=== PATIENT | female | born 1950 | race Caucasian/White ===

== ENCOUNTER 2022-06-21 21:13 | Inpatient (IN) | payer OTHER, SELFPAY ==
[2022-06-21] VITALS (8 sets, daily range): BP systolic 133–156; BP diastolic 57–84; PULSE 97–120; RESP 13–26; TEMP 36.8; O2SAT 91–96; BMI 38.5
[2022-06-21 21:32] LABS: Appearance Urine UA CLEAR; Bilirubin Urine UA NEGATIVE (NEGATIVE); Color Urine UA YELLOW; Glucose Urine UA NEGATIVE (Negative); Ketones Urine UA NEGATIVE (NEGATIVE); Leukocyte Esterase Urine UA TRACE (NEGATIVE); Nitrite Urine UA NEGATIVE (Negative); Occult Blood Urine UA NEGATIVE (Negative); Protein Urine UA NEGATIVE (Negative); Urobilinogen Urine UA 0.2 E.U./dL (0.2)
[2022-06-21 21:39] LABS: Amorphous Sediment Urine 1+; Bacteria Urine Occasional (0-1); Calcium Oxalate Crystals Urine Moderate; Hyaline Casts Urine 5-10/LPF; RBC Urine 0-1/HPF (0-5/HPF); Squamous Epithelial Cell Urine 1-5 /HPF (0-5/HPF)
[2022-06-21 21:40] LABS: Culture Indicated Urine Specimen Cultured; WBC Urine 1-5/HPF (0-5/HPF)
[2022-06-21] MEDS: ONDANSETRON 4 MG/2 ML INJ IV (21:50)
[2022-06-21 22:08] LABS: Add Manual Diff / Slide Review NO; Basophils Absolute Auto 100 /uL (0-100); Basophils Percent Auto 0.5 % (0-2); Eosinophils Absolute Auto 800 /uL (0-450); Eosinophils Percent Auto 6.6 % (2-4); Hematocrit 39.6 % (36-46); Lymphocytes Absolute Auto 2100 /uL (1100-4500); Lymphocytes Percent Auto 16.6 % (25-40); Mean Corpuscular HGB Conc 32.8 % (30-36); Mean Corpuscular Hemoglobin 22.8 PG (26-34); Mean Corpuscular Volume 69.5 fL (80-100); Monocytes Absolute Auto 1400 /uL (0-900); Monocytes Percent Auto 10.9 % (3-14); Neutrophils Absolute Auto 8300 /uL (1500-7000); Neutrophils Percent Auto 65.4 % (50-75); Platelet Count 319 X10^3/uL (150-400); Red Cell Distribution Width 18.6 % (11.6-14.8); White Blood Cell Count 12.7 X10^3/uL (4.5-11.0)
[2022-06-21 22:16] LABS: Alanine Aminotransferase 67 IU/L (<35); Albumin 3.8 g/dL (3.5-5.0); Albumin Globulin Ratio 1.2 (1.0-2.8); Alkaline Phosphatase 380 U/L (38-126); Aspartate Aminotransferase 48 IU/L (14-36); BUN Creatinine Ratio 16.8 (6-22); Bilirubin Total 0.8 mg/dL (0.2-1.3); Blood Urea Nitrogen 20 mg/dL (7-17); Calcium 12.1 mg/dL (8.4-10.2); Carbon Dioxide 26 mmol/L (22-32); Chloride 98 mmol/L (98-107); Estimated Glomerular Filt Rate 49 mL/min (>60); Globulin 3.3 g/dL (1.7-4.1); Glucose 130 mg/dL (80-110); HEMOLYSIS < 15 (0-50); Lipase 36 U/L (23-300); Sodium 132 mmol/L (137-145); Total Protein 7.1 g/dL (6.3-8.2)
[2022-06-21 22:27] LABS: Anisocytosis 1+; Microcytosis 2+; Target Cells 1+
--- NOTE | 2022-06-21 22:30 | ED.ABDPAIN ---
HPI - Abdominal Pain General Chief Complaint: Abdominal Pain Stated Complaint: nt feeling- increase pain front/back ab pain Time Seen by Provider: 06/21/22 21:56 Source: patient Mode of arrival: Ambulatory Limitations: no limitations History of Present Illness HPI narrative: This is a 71-year-old female with history of crest syndrome, Gallagher's esophagitis, esophageal dysmotility, hypertension, Raynaud's and recurrent pancreatitis. Patient presents with midepigastric pain radiating towards her back. Patient states she is had nausea that started in the last day. She states for the past 10 she has not felt well but not sick. She states pain has been a little bit there but has gotten worse today she states it feels similar to when she gets pancreatitis in the early stages. She is had nausea but no vomiting. She has had a little bit of lightheadedness when she goes from sitting to standing but no syncope. She has chronic shortness of breath which she states is not new or worsened. She had little bit of radiation up into the sternal area but worse when she would push on her abdomen and chest. She denies any swelling in her extremities. She states she is chronically constipated and had a bowel movement today. No bright red blood or melena. No dysuria, urgency or frequency. She sometimes gets a little bit of right flank pain none today but has had some intermittently. She is on medication including hydroxychloroquine for her hands sounds like she might have rheumatoid arthritis versus her crest syndrome, valsartan, Lasix. Patient states she did not take her medication today because she was worried about the nausea and having trouble swallowing her pills. She is had prior EGDs, appendectomy, bilateral knee replacement, breast biopsy, tonsil and adenoids, back surgery in 2020 for L3 through L5 and has a hilaria in her back. No prior cardiac stents or interventions. She states she is allergic to codeine and tetracycline. No tobacco, alcohol or illicit. Shana perez is her provider through Dr. Khalil's office. She sees a residential program manager and gastroenterology Ryan. She is been set up to follow up with pulmonology and she has seen Cardiology with Dr. Chinchilla in the past. She was having issues with her blood pressure being labile and they stopped her nifedipine and change her to valsartan about a year ago and that resolved. Related Data Home Medications Medication Instructions Recorded Confirmed albuterol sulfate 90 mcg/actuation 1 puff inhalation PRN PRN Allergy 06/22/22 06/22/22 aerosol inhaler Symptoms azelastine 137 mcg (0.1 %) nasal 1 spray intranasal PRN PRN 06/22/22 06/22/22 spray aerosol Allergic Symptoms furosemide 20 mg tablet (Lasix) 20 mg PO DAILY 06/22/22 06/22/22 hydroxychloroquine 200 mg tablet 200 mg PO DAILY 06/22/22 06/22/22 omeprazole 40 mg capsule,delayed 40 mg PO BID 06/22/22 06/22/22 release valsartan 40 mg tablet 40 mg PO DAILY 06/22/22 06/22/22 Allergies Allergy/AdvReac Type Severity Reaction Status Date / Time codeine Allergy Verified 06/21/22 21:30 tetracycline Allergy Verified 06/21/22 21:30 Review of Systems Review of Systems ROS Unobtainable: All systems reviewed & are unremarkable except as noted in HPI and below Patient History Social History household members: family Smoking Status: Never smoker alcohol intake: former Smoking Status: Never smoker Substance Use Type: does not use Exam Narrative Exam Narrative: GEN: Elderly female, alert and oriented x 3, patient appears to be in mild distress. HEENT: Atraumatic, pupils are equal round reactive to light, extraocular movements are intact, nares are clear, there is no conjunctival pallor. Throat is clear without any exudates, erythema, tonsillar enlargement or uvular deviation HEART: Slightly tachycardic 100-90 range, Regular rate and rhythm without murmur, clicks, rubs. Pulses are equal in upper and lower extremities. No JVD. Patient has tenderness over the epigastric area and sternal region. LUNGS:Lungs clear to auscultation, no wheezes, rales, crackles, chest moves symmetrically, no tachypnea accessory muscle use ABD:bowel sounds normal, soft, generalized tenderness, no guarding, rebound, rigidity, no masses noted, no hepatosplenomegaly :No CVA tenderness MSCL: Non-tender, no muscle atrophy, muscles strength 5/5 upper and lower extremities, full range of motion, normal gait NEURO:CN 2-12 intact, sensation normal SKIN: No rash, erythema or other skin changes Initial Vital Signs Initial Vital Signs: Vital Signs Temperature 98.3 F 06/21/22 21:20 Pulse Rate 120 H 06/21/22 21:20 Respiratory Rate 18 06/21/22 21:20 Blood Pressure 144/84 H 06/21/22 21:20 Pulse Oximetry 96 06/21/22 21:20 Oxygen Delivery Method Room Air 06/21/22 21:20 Course Orders Ordered: ED Orders 06/21/22 21:20 Urinalysis and Microscopic Stat Urine Culture Stat 06/21/22 21:34 EKG-12 Lead Stat 06/21/22 21:46 BNP [NT-proBNP (BNP-Adult 18+)] Stat Complete Blood Count AUTO DIFF Stat Comprehensive Metabolic Panel Stat Lactate (Lactic Acid) Stat Lipase Stat Troponin & CK Cardiac Panel Stat 06/21/22 22:31 CT abdomen pelvis w con Stat Chest [XR chest 1V] Stat 06/21/22 23:20 Blood Culture Stat 06/21/22 23:25 US abdomen limited Stat 06/22/22 00:18 COVID19 -Nasal RAPID Stat Acetaminophen (Acetaminophen 325 Mg Tablet) 650 mg PO Q6H PRN PRN Reason: Fever/Mild Pain (1-3) Heparin Sodium (Porcine) (Heparin 5,000 Unit/Ml Vial) 5,000 unit SUBCUT BID RITESH Lactated Ringer's (Lactated Ringers) 1,000 mls @ 200 mls/hr IV CONT RITESH Last Admin: 06/22/22 03:19 Dose: 200 mls/hr Documented By: MELVA Piperacillin Sod/Tazobactam (Sod 3.375 gm/ Sodium Chloride) 100 mls @ 25 mls/hr IV Q8H [facility] Naloxone HCl (Naloxone 0.4 Mg/Ml Vial) 0.2 mg IV Q2MIN PRN PRN Reason: Opiate Reversal Ondansetron HCl (Ondansetron 4 Mg/2 Ml Inj) 4 mg IV Q8HR PRN PRN Reason: Nausea And Vomiting Pantoprazole Sodium (Pantoprazole 40 Mg Vial) 40 mg IV DAILY [facility] Discontinued Medications Acetaminophen (Acetaminophen 325 Mg Tablet) 975 mg PO NOW ONE Stop: 06/21/22 22:32 Last Admin: 06/21/22 23:16 Dose: 975 mg Documented By: CARLY Al Hydrox/Mg Hydrox/Simethicone 20 ml/ Lidocaine HCl 15 ml 0 ml PO NOW ONE Stop: 06/22/22 02:55 Last Admin: 06/22/22 03:19 Dose: 35 ml Documented By: MELVA Sodium Chloride (Normal Saline 0.9%) 1,000 mls @ 1,000 mls/hr IV BOLUS ONE Stop: 06/21/22 23:30 Last Infusion: 06/22/22 00:50 Dose: 0 mls/hr Documented By: Admin: 06/21/22 23:16 Dose: 1,000 mls/hr Documented By: CARLY Piperacillin Sod/Tazobactam (Sod 4.5 gm/ Sodium Chloride) 100 mls @ 200 mls/hr IV NOW ONE Stop: 06/21/22 22:46 Last Infusion: 06/22/22 00:20 Dose: 0 mls/hr Documented By: Admin: 06/21/22 23:16 Dose: 200 mls/hr Documented By: CARLY Influenza Virus Vaccine (Influenza Hd Vaccine 0.7 Ml Syringe) 0.7 ml IM .ONCE ONE Stop: 06/22/22 09:01 Ondansetron HCl (Ondansetron 4 Mg Odt) 4 mg PO NOW PRN PRN Reason: Nausea And Vomiting Ondansetron HCl (Ondansetron 4 Mg/2 Ml Inj) 4 mg IV NOW PRN PRN Reason: Nausea And Vomiting Last Admin: 06/21/22 21:50 Dose: 4 mg Documented By: ANGEL LUIS Vital Signs Vital signs: Vital Signs - 8 hr 06/21/22 21:20 06/21/22 21:27 06/21/22 21:30 Temperature 98.3 F Pulse Rate 120 H Respiratory Rate 18 Blood Pressure 144/84 H 144/84 H 156/57 H Pulse Oximetry 96 Oxygen Delivery Method Room Air 06/21/22 21:30 06/21/22 22:00 06/21/22 22:00 Temperature Pulse Rate 116 H 101 H Respiratory Rate 24 13 Blood Pressure 133/67 Pulse Oximetry 95 91 Oxygen Delivery Method 06/21/22 22:30 06/21/22 22:30 06/21/22 23:03 Temperature Pulse Rate 101 H 115 H Respiratory Rate 23 20 Blood Pressure 145/82 H Pulse Oximetry 93 91 Oxygen Delivery Method Room Air 06/21/22 23:04 06/21/22 23:04 06/21/22 23:30 Temperature Pulse Rate 107 H Respiratory Rate 23 Blood Pressure 152/69 H 141/64 H Pulse Oximetry 93 Oxygen Delivery Method Room Air 06/21/22 23:30 06/22/22 00:00 06/22/22 00:00 Temperature Pulse Rate 97 H 93 H Respiratory Rate 26 H 26 H Blood Pressure 154/69 H Pulse Oximetry 93 92 Oxygen Delivery Method 06/22/22 00:30 06/22/22 00:30 06/22/22 01:03 Temperature Pulse Rate 91 H 93 H Respiratory Rate 23 16 Blood Pressure 117/59 L Pulse Oximetry 90 L 93 Oxygen Delivery Method MDM - Abdominal Pain Lab Data 06/21/22 21:46 06/21/22 21:46 Labs: Lab Results 06/21/22 06/21/22 06/21/22 Range/Units 21:20 21:46 21:46 WBC 12.7 H (4.5-11.0) X10^3/uL RBC 5.70 H (4.0-5.2) X10^6/uL Hgb 13.0 (12.0-16.0) g/dL Hct 39.6 (36-46) % MCV 69.5 L (80-100) fL MCH 22.8 L (26-34) PG MCHC 32.8 (30-36) % RDW 18.6 H (11.6-14.8) % Plt Count 319 (150-400) X10^3/uL Neut % (Auto) 65.4 (50-75) % Lymph % (Auto) 16.6 L (25-40) % [place] % (Auto) 10.9 (3-14) % Eos % (Auto) 6.6 H (2-4) % Baso % (Auto) 0.5 (0-2) % Neut # (Auto) 8300 H (3571-1035) /uL Lymph # (Auto) 2100 (4810-4817) /uL [place] # (Auto) 1400 H (0-900) /uL Eos # (Auto) 800 H (0-450) /uL Baso # (Auto) 100 (0-100) /uL RBC Morphology See below Anisocytosis 1+ H Microcytosis 2+ H Target Cells 1+ H Sodium 132 L (137-145) mmol/L Potassium 4.0 (3.4-5.1) mmol/L Chloride 98 (98-107) mmol/L Carbon Dioxide 26 (22-32) mmol/L BUN 20 H (7-17) mg/dL Creatinine 1.19 H (0.52-1.04) mg/dL Estimated GFR 49 L (>60) mL/min BUN/Creatinine Ratio 16.8 (6-22) Glucose 130 H (80-110) mg/dL Lactate (0.7-2.1) mmol/L Calcium 12.1 H (8.4-10.2) mg/dL Total Bilirubin 0.8 (0.2-1.3) mg/dL AST 48 H (14-36) IU/L ALT 67 H (<35) IU/L Alkaline Phosphatase 380 H (38-126) U/L Total Creatine Kinase (30-135) U/L CK-MB (CK-2) CK-MB (CK-2) Rel Index Troponin I (0.01-0.034) ng/mL NT-Pro-B Natriuret Pep (<125) pg/mL Total Protein 7.1 (6.3-8.2) g/dL Albumin 3.8 (3.5-5.0) g/dL Globulin 3.3 (1.7-4.1) g/dL Albumin/Globulin Ratio 1.2 (1.0-2.8) Lipase 36 (23-300) U/L Urine Color Yellow Urine Appearance Clear Urine pH 6.0 (4.5-8.0) Ur Specific [place] 1.020 (1.000-1.035) Urine Protein Negative (Negative) Urine Glucose (UA) Negative (Negative) g/dL Urine Ketones Negative (NEGATIVE) Urine Occult Blood Negative (Negative) Urine Nitrate Negative (Negative) Urine Bilirubin Negative (NEGATIVE) Urine Urobilinogen 0.2 (0.2) E.U./dL Ur Leukocyte Esterase Trace H (NEGATIVE) Urine RBC 0-1/hpf (0-5/HPF) Urine WBC 1-5/hpf (0-5/HPF) Ur Squamous Epith Cells 1-5 /hpf (0-5/HPF) Calcium Oxalate Crystal Moderate H Amorphous Sediment 1+ Urine Bacteria Occasional (0-1) (None) Hyaline Casts 5-10/lpf (None) Ur Culture Indicated? Specimen cultured SARS-CoV-2 (PCR) (Negative) 06/21/22 06/21/22 06/22/22 Range/Units 21:46 21:46 00:18 WBC (4.5-11.0) X10^3/uL RBC (4.0-5.2) X10^6/uL Hgb (12.0-16.0) g/dL Hct (36-46) % MCV (80-100) fL MCH (26-34) PG MCHC (30-36) % RDW (11.6-14.8) % Plt Count (150-400) X10^3/uL Neut % (Auto) (50-75) % Lymph % (Auto) (25-40) % [place] % (Auto) (3-14) % Eos % (Auto) (2-4) % Baso % (Auto) (0-2) % Neut # (Auto) (2590-4115) /uL Lymph # (Auto) (7355-2100) /uL [place] # (Auto) (0-900) /uL Eos # (Auto) (0-450) /uL Baso # (Auto) (0-100) /uL RBC Morphology Anisocytosis Microcytosis Target Cells Sodium (137-145) mmol/L Potassium (3.4-5.1) mmol/L Chloride (98-107) mmol/L Carbon Dioxide (22-32) mmol/L BUN (7-17) mg/dL Creatinine (0.52-1.04) mg/dL Estimated GFR (>60) mL/min BUN/Creatinine Ratio (6-22) Glucose (80-110) mg/dL Lactate 1.3 (0.7-2.1) mmol/L Calcium (8.4-10.2) mg/dL Total Bilirubin (0.2-1.3) mg/dL AST (14-36) IU/L ALT (<35) IU/L Alkaline Phosphatase (38-126) U/L Total Creatine Kinase 47 (30-135) U/L CK-MB (CK-2) TNP CK-MB (CK-2) Rel Index TNP Troponin I < 0.012 (0.01-0.034) ng/mL NT-Pro-B Natriuret Pep 109 (<125) pg/mL Total Protein (6.3-8.2) g/dL Albumin (3.5-5.0) g/dL Globulin (1.7-4.1) g/dL Albumin/Globulin Ratio (1.0-2.8) Lipase (23-300) U/L Urine Color Urine Appearance Urine pH (4.5-8.0) Ur Specific [place] (1.000-1.035) Urine Protein (Negative) Urine Glucose (UA) (Negative) g/dL Urine Ketones (NEGATIVE) Urine Occult Blood (Negative) Urine Nitrate (Negative) Urine Bilirubin (NEGATIVE) Urine Urobilinogen (0.2) E.U./dL Ur Leukocyte Esterase (NEGATIVE) Urine RBC (0-5/HPF) Urine WBC (0-5/HPF) Ur Squamous Epith Cells (0-5/HPF) Calcium Oxalate Crystal Amorphous Sediment Urine Bacteria (None) Hyaline Casts (None) Ur Culture Indicated? SARS-CoV-2 (PCR) Negative (Negative) Imaging Data Chest x-ray: Radiologist's Impression: Report is in PACs but did not cross over into the EMR system. Diffuse mild interstitial prominence, chronicity uncertain. No subdiaphragmatic free air found. No pleural effusion or pneumothorax. Mediastinal contours appear normal. Heart size is normal. No suspicious bony lesions. Overlying soft tissue appears unremarkable. CT scan - abdomen/pelvis: Radiologist's Impression: Close Abdomen Ultrasound (Signed) Bryan Vasquez - 06/21/22 Abdomen/Pelvis CT (Signed) Bryan Vasquez - 06/21/22 [employer] [address] CT Scan Report Signed Patient: Verito Hillman MR#: [id number] : 1950 Acct:[id number] Age/Sex: 71 / F Date of Service: 06/21/22 Loc: ED Accession Number: [id number] ?? Procedure: CT abdomen pelvis w con Ordering Provider: Iris Domínguez D.O. PROCEDURE:? CT ABDOMEN PELVIS W CON ? INDICATIONS:? abd pain ? TECHNIQUE:? After the administration of intravenous contrast, axial sections acquired from the lung bases to the pubic symphysis.? Coronal and sagittal reformats were performed.? For radiation dose reduction, the following was used:? automated exposure control, adjustment of mA and/or kV according to patient size.? ? COMPARISON:? None. ? FINDINGS:? Image quality:? Excellent.? ? Lung bases:? Unremarkable. Heart:? No significant findings.? Note is made of a moderate-sized hiatal hernia behind the heart. ? ABDOMEN: Liver:? Unremarkable.? ? Gallbladder:? Unremarkable.? ? Biliary ducts:? Unremarkable.? ? Pancreas:? Unremarkable.? ? Spleen:? Unremarkable.? ? Adrenal Glands:? Unremarkable.? ? Kidneys and Ureters:? Unremarkable.? ? ? Stomach and Bowel:? Stomach, small bowel loops, and colon are unremarkable.? Colonic obstipation, right greater than left. Peritoneum:? No abnormal intraperitoneal fluid.? No free air.? ? Ventral Wall: ? No hernias.? Abdominal Nodes:? No retroperitoneal or mesenteric adenopathy by size criteria.? Vessels:? Aorta and inferior vena cava are normal in size.? ? PELVIS: Pelvic Organs:? Unremarkable.? ? Bladder:? Unremarkable.? ? Pelvic Nodes: No enlarged lymph nodes.? Miscellaneous: No hernias are seen. ? Colonic obstipation, right greater than left.? Sigmoid diverticulosis with what appears to be slight acute diverticulitis at the left lower quadrant as indicated by slight edema within the pericolonic fatty soft tissues in that area.? This is best seen centered on diverticula seen on series 2, image 49.? ? Bones:? Unremarkable.? ? Prior lumbosacral spine fusion procedure. ? ? IMPRESSION:? Colonic diverticulosis, right greater than left.? No colitis found.? There is, however, relatively prominent sigmoid diverticulosis and also focal mild acute diverticulitis involving the lower aspect of the descending colon in the left iliac fossa area.? No pericolonic abscess is associated. ? ? Dictated by: Bryan Vasquez M.D. on 06/21/2022 at 23:08 ? ? Approved by: Bryan Vasquez M.D. on 06/21/2022 at 23:12 US - abdomen: Radiologist's Impression: [address] [address] Ultrasound Report Signed Patient: Verito Hillman MR#: [id number] : 1950 Acct:[id number] Age/Sex: 71 / F Date of Service: 06/21/22 Loc: ED Accession Number: [id number] ?? Procedure: US abdomen limited Ordering Provider: Iris Domínguez D.O. PROCEDURE: US ABDOMEN LIMITED ? INDICATIONS:? abd pain, elevated lfts ? TECHNIQUE:? Real-time focused scanning was performed of the abdomen, with image documentation.? ? COMPARISON:? None. ? FINDINGS:? The liver appears hyperechoic consistent with fatty infiltration but is not enlarged, measuring 15.8 cm craniocaudad.? The gallbladder contains a small amount of sludge and a single 8 mm gallstone, but the gallbladder wall is within normal limits in caliber measuring up to 3 mm.? The bile ducts visualized are normal also, and the pancreas seen appears normal. ? IMPRESSION:? Single gallstone within the gallbladder lumen, with additional small amount of sludge. ? No sign of acute cholecystitis or biliary obstruction.? Fatty infiltration throughout the liver which is not enlarged.? ? Dictated by: Bryan Vasquez M.D. on 06/22/2022 at 0:12 ? ? Approved by: Bryan Vasquez M.D. on 06/22/2022 at 0:15?? ECG Data Attestation: I personally reviewed and interpreted this ECG as follows: Prior ECG tracings: not available for review Interpretation: Sinus tachycardia rate of 111 MT 124 QRS of 86 and QTC of 437. Left anterior fascicular block, left ventricular hypertrophy. No acute ST elevation appreciated. No depression noted. MDM Narrative Medical decision making narrative: This is a 71-year-old female who presents with complaint of generally feeling unwell for about 10 days some some epigastric abdominal pain for the past day she is had nausea but no vomiting. Patient has had history of pancreatitis and states it feels similar to the early stages. She is not sure exactly why she is pancreatitis she states she does not drink alcohol. She is had about 5 episodes every 2 years or so. She does have history of crest syndrome, Raynaud's and is on hydroxychloroquine. Her examination today shows generalized tenderness. Patient workup shows leukocytosis, MCV is low at 69, platelets are appropriate at 3:19 a.m. with a hemoglobin of 12. Patient has elevated eosinophils and neutrophils. CMP shows a sodium 132 normal potassium, CO2 is 26 BUN 20 with a creatinine of 1.19 no priors for comparison see if this is her baseline. Glucose is 130 lactate normal but calcium is elevated at 12.1. Total bilirubin AST/ALT alk-phos show very mild change in AST ALT at 48 and 67. Alk-phos is 380. Patient's troponins negative so as BNP. Lipase today is negative. Urine shows leukocyte esterase and some calcium oxalate crystals. She is COVID negative. Chest x-ray showed a little interstitial change. CT abdomen pelvis has some colonic obstipation, sigmoid diverticulosis with a focal mild diverticulitis in the descending colon on the left no abscess. Patient's discomfort was more epigastric and upper abdomen she had some generalized tenderness on exam I am not entirely convinced diverticulitis is the complete source of her pain. She was given a L of fluids for her hyper calcemia. Some Tylenol for headache and Zofran. To give her a dose of IV antibiotic to cover for infection. Patient heart rate improved quite a bit into the 90s after a L fluids she is not been hypotensive. She is not been febrile. Discussed with Dr. Fournier at the ultrasound does show gallstone but no thickening or Clemente's sign. No surgical interventions from their standpoint. I spoke with Dr. Og, hospitalist service who accepts for observation for hypercalcemia, possible acute kidney injury although this may be patient's baseline, diverticulitis. Updated patient is on her findings. She notes her GFR was 54 at last check with Dr. Miranda cardiology when changes to valsartan. Reviewed all patients findings. She states she is feeling improved at this time. Discharge Plan Departure Patient Disposition: Admitted as Observation Clinical Impression: Hypercalcemia, BOBO (acute kidney injury), SIRS (systemic inflammatory response syndrome), Gallstone, Diverticulitis Admit Date/Time: 06/22/22 01:12 Admit Provider: Alex Og
--- NOTE | 2022-06-21 22:31 | DI.CT.S_ITS ---
PROCEDURE: CT ABDOMEN PELVIS W CON INDICATIONS: abd pain TECHNIQUE: After the administration of intravenous contrast, axial sections acquired from the lung bases to the pubic symphysis. Coronal and sagittal reformats were performed. For radiation dose reduction, the following was used: automated exposure control, adjustment of mA and/or kV according to patient size. COMPARISON: None. FINDINGS: Image quality: Excellent. Lung bases: Unremarkable. Heart: No significant findings. Note is made of a moderate-sized hiatal hernia behind the heart. ABDOMEN: Liver: Unremarkable. Gallbladder: Unremarkable. Biliary ducts: Unremarkable. Pancreas: Unremarkable. Spleen: Unremarkable. Adrenal Glands: Unremarkable. Kidneys and Ureters: Unremarkable. Stomach and Bowel: Stomach, small bowel loops, and colon are unremarkable. Colonic obstipation, right greater than left. Peritoneum: No abnormal intraperitoneal fluid. No free air. Ventral Wall: No hernias. Abdominal Nodes: No retroperitoneal or mesenteric adenopathy by size criteria. Vessels: Aorta and inferior vena cava are normal in size. PELVIS: Pelvic Organs: Unremarkable. Bladder: Unremarkable. Pelvic Nodes: No enlarged lymph nodes. Miscellaneous: No hernias are seen. Colonic obstipation, right greater than left. Sigmoid diverticulosis with what appears to be slight acute diverticulitis at the left lower quadrant as indicated by slight edema within the pericolonic fatty soft tissues in that area. This is best seen centered on diverticula seen on series 2, image 49. Bones: Unremarkable. Prior lumbosacral spine fusion procedure. IMPRESSION: Colonic diverticulosis, right greater than left. No colitis found. There is, however, relatively prominent sigmoid diverticulosis and also focal mild acute diverticulitis involving the lower aspect of the descending colon in the left iliac fossa area. No pericolonic abscess is associated. Dictated by: Bryan Vasquez M.D. on 06/21/2022 at 23:08 Approved by: Bryan Vasquez M.D. on 06/21/2022 at 23:12
--- NOTE | 2022-06-21 22:31 | DI.RAD.S_ITS ---
PROCEDURE: XR CHEST 1V INDICATIONS: abd pain TECHNIQUE: One view of the chest was acquired. COMPARISON: [facility], CT, CT ABDOMEN PELVIS W CON, 06/21/2022, 22:44. FINDINGS: Surgical changes and devices: None. Lungs and pleura: Lungs are free of focal pneumonia but there is a mild diffuse interstitial prominence. No pleural effusions or pneumothorax. Mediastinum: Mediastinal contours appear normal. Heart size is normal. Bones and chest wall: No suspicious bony lesions. Overlying soft tissues appear unremarkable. IMPRESSION: Diffuse mild interstitial prominence, chronicity uncertain. No subdiaphragmatic free air found. Dictated by: Bryan Vasquez M.D. on 06/21/2022 at 23:06 Approved by: Bryan Vasquez M.D. on 06/21/2022 at 23:07
[2022-06-21 22:46] LABS: Creatine Kinase 47 U/L (30-135)
[2022-06-21 22:57] LABS: Lactate (Lactic Acid) 1.3 mmol/L (0.7-2.1)
[2022-06-21 22:59] LABS: NT-proBNP (BNP-Adult 18+) 109 pg/mL (<125); Troponin I < 0.012 ng/mL (0.01-0.034)
[2022-06-21] MEDS: SODIUM CHLORIDE 0.9% 1,000 ML 1000 ML IV (23:16)
[2022-06-21] MEDS: ACETAMINOPHEN 325 MG TABLET 975 MG PO (23:16)
[2022-06-21] MEDS: PIPERACILLIN/TAZO 4.5 GM in SODIUM CHLORIDE 0.9% 100 ML IV (23:16)
--- NOTE | 2022-06-21 23:25 | DI.US.S_ITS ---
PROCEDURE: US ABDOMEN LIMITED INDICATIONS: abd pain, elevated lfts TECHNIQUE: Real-time focused scanning was performed of the abdomen, with image documentation. COMPARISON: None. FINDINGS: The liver appears hyperechoic consistent with fatty infiltration but is not enlarged, measuring 15.8 cm craniocaudad. The gallbladder contains a small amount of sludge and a single 8 mm gallstone, but the gallbladder wall is within normal limits in caliber measuring up to 3 mm. The bile ducts visualized are normal also, and the pancreas seen appears normal. IMPRESSION: Single gallstone within the gallbladder lumen, with additional small amount of sludge. No sign of acute cholecystitis or biliary obstruction. Fatty infiltration throughout the liver which is not enlarged. Dictated by: Bryan Vasquez M.D. on 06/22/2022 at 0:12 Approved by: Bryna Vasquez M.D. on 06/22/2022 at 0:15
[2022-06-22] VITALS (11 sets, daily range): BP systolic 113–154; BP diastolic 45–69; PULSE 65–93; RESP 13–26; TEMP 36.2–37.1; O2SAT 90–95; BMI 38.5
[2022-06-22 00:38] LABS: COVID19 -Nasal RAPID Negative (Negative)
--- NOTE | 2022-06-22 02:01 | PM.HP.1 ---
History of Present Illness History of Present Illness Date Patient Seen: 06/22/22 Time Patient Seen: 02:00 Chief complaint: nt feeling- increase pain front/back ab pain Narrative: Ms. 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 She states she has felt poorly for at least a week. She has had epigastric discomfort, it is fairly pinpoint right at the xiphoid process and radiates to the back. She notes worse when pain she takes a breath. She has nausea and poor appetite. She has had night sweats every night for a week. She has no fevers. She has lost no weight. She feels dehyrated, and she feels dizzy while standing. No diarrhea, or vomiting. She does not think this feels like her usual GERD symptoms. She had a endoscopy in January that showed Carlos's, she has never had any peptic ulcers. Colonoscopy was 4 years ago and had polyps. Her CREST has been worsening and she started hydroxychloroquine a few months ago. In the ED workup was done, vitals notable for afebrile, heart rate in the 120s, respiratory rate 18, blood pressure 140s/80s, sats 96% on room air. Labs reviewed by me and notable for WBC 12.7, hgb 13, plts 319. Na 132, creatinine 1.19. Calcium 12.1, AST/ALT 48/67. alk phos 380. Lactate 1.3. Troponin negative. CT abdomen reviewed by me and showed hiatal hernia, possible diverticulitis in the colon. Ultrasound of the abdomen showed cholelithiasis and no cholecystitis. She was given antibiotics and her heart rate improve and she was admitted for further treatment. [facility] Social History household members: family Smoking Status: Never smoker alcohol intake: former Meds Home Medications and Allergies Home Medications Medication Instructions Recorded Confirmed Type albuterol sulfate 90 mcg/actuation 1 puff inhalation PRN PRN Allergy 06/22/22 06/22/22 History aerosol inhaler Symptoms azelastine 137 mcg (0.1 %) nasal 1 spray intranasal PRN PRN 06/22/22 06/22/22 History spray aerosol Allergic Symptoms furosemide 20 mg tablet (Lasix) 20 mg PO DAILY 06/22/22 06/22/22 History hydroxychloroquine 200 mg tablet 200 mg PO DAILY 06/22/22 06/22/22 History omeprazole 40 mg capsule,delayed 40 mg PO BID 06/22/22 06/22/22 History release valsartan 40 mg tablet 40 mg PO DAILY 06/22/22 06/22/22 History Allergies Allergy/AdvReac Type Severity Reaction Status Date / Time codeine Allergy Verified 06/21/22 21:30 tetracycline Allergy Verified 06/21/22 21:30 Review of Systems Review of Systems Narrative: 14 systems reviewed and negative aside from what is noted in HPI Exam Vital Signs (past 8 hours): - 06/21/22 21:20 06/21/22 21:27 06/21/22 21:30 Temperature 98.3 F Pulse Rate 120 H Respiratory Rate 18 Blood Pressure 144/84 H 144/84 H 156/57 H Pulse Oximetry 96 Oxygen Delivery Method Room Air 06/21/22 21:30 06/21/22 22:00 06/21/22 22:00 Temperature Pulse Rate 116 H 101 H Respiratory Rate 24 13 Blood Pressure 133/67 Pulse Oximetry 95 91 Oxygen Delivery Method 06/21/22 22:30 06/21/22 22:30 06/21/22 23:03 Temperature Pulse Rate 101 H 115 H Respiratory Rate 23 20 Blood Pressure 145/82 H Pulse Oximetry 93 91 Oxygen Delivery Method Room Air 06/21/22 23:04 06/21/22 23:04 06/21/22 23:30 Temperature Pulse Rate 107 H Respiratory Rate 23 Blood Pressure 152/69 H 141/64 H Pulse Oximetry 93 Oxygen Delivery Method Room Air 06/21/22 23:30 06/22/22 00:00 06/22/22 00:00 Temperature Pulse Rate 97 H 93 H Respiratory Rate 26 H 26 H Blood Pressure 154/69 H Pulse Oximetry 93 92 Oxygen Delivery Method 06/22/22 00:30 06/22/22 00:30 06/22/22 01:03 Temperature Pulse Rate 91 H 93 H Respiratory Rate 23 16 Blood Pressure 117/59 L Pulse Oximetry 90 L 93 Oxygen Delivery Method 06/22/22 01:30 Temperature Pulse Rate 85 Respiratory Rate 13 Blood Pressure Pulse Oximetry 92 Oxygen Delivery Method Oxygen Delivery Method Room Air Narrative Exam Narrative: GEN: in mild distress from pain HEENT: dry mucous membranes, PERRL NECK: trachea midline, no JVD PULM: clear bilaterally, no wheezes, rhonchi, rales CV: tachycardic, systolic murmur noted ABD: soft, nondistended, pinpoint tenderness in epigastric region over xiphoid EXT: warm and well pefused with no edema NEURO: awake, alert, oriented, with no focal deficits Objective Labs 06/21/22 21:46 06/21/22 21:46 Labs: Laboratory Results - last 24 hr 06/21/22 06/21/22 06/21/22 21:20 21:46 21:46 WBC 12.7 H RBC 5.70 H Hgb 13.0 Hct 39.6 MCV 69.5 L MCH 22.8 L MCHC 32.8 RDW 18.6 H Plt Count 319 Neut % (Auto) 65.4 Lymph % (Auto) 16.6 L [place] % (Auto) 10.9 Eos % (Auto) 6.6 H Baso % (Auto) 0.5 Neut # (Auto) 8300 H Lymph # (Auto) 2100 [place] # (Auto) 1400 H Eos # (Auto) 800 H Baso # (Auto) 100 RBC Morphology See below Anisocytosis 1+ H Microcytosis 2+ H Target Cells 1+ H Sodium 132 L Potassium 4.0 Chloride 98 Carbon Dioxide 26 BUN 20 H Creatinine 1.19 H Estimated GFR 49 L BUN/Creatinine Ratio 16.8 Glucose 130 H Lactate Calcium 12.1 H Total Bilirubin 0.8 AST 48 H ALT 67 H Alkaline Phosphatase 380 H Total Creatine Kinase CK-MB (CK-2) CK-MB (CK-2) Rel Index Troponin I NT-Pro-B Natriuret Pep Total Protein 7.1 Albumin 3.8 Globulin 3.3 Albumin/Globulin Ratio 1.2 Lipase 36 Urine Color Yellow Urine Appearance Clear Urine pH 6.0 Ur Specific [place] 1.020 Urine Protein Negative Urine Glucose (UA) Negative Urine Ketones Negative Urine Occult Blood Negative Urine Nitrate Negative Urine Bilirubin Negative Urine Urobilinogen 0.2 Ur Leukocyte Esterase Trace H Urine RBC 0-1/hpf Urine WBC 1-5/hpf Ur Squamous Epith Cells 1-5 /hpf Calcium Oxalate Crystal Moderate H Amorphous Sediment 1+ Urine Bacteria Occasional (0-1) Hyaline Casts 5-10/lpf Ur Culture Indicated? Specimen cultured SARS-CoV-2 (PCR) 06/21/22 06/21/22 06/22/22 21:46 21:46 00:18 WBC RBC Hgb Hct MCV MCH MCHC RDW Plt Count Neut % (Auto) Lymph % (Auto) [place] % (Auto) Eos % (Auto) Baso % (Auto) Neut # (Auto) Lymph # (Auto) [place] # (Auto) Eos # (Auto) Baso # (Auto) RBC Morphology Anisocytosis Microcytosis Target Cells Sodium Potassium Chloride Carbon Dioxide BUN Creatinine Estimated GFR BUN/Creatinine Ratio Glucose Lactate 1.3 Calcium Total Bilirubin AST ALT Alkaline Phosphatase Total Creatine Kinase 47 CK-MB (CK-2) TNP CK-MB (CK-2) Rel Index TNP Troponin I < 0.012 NT-Pro-B Natriuret Pep 109 Total Protein Albumin Globulin Albumin/Globulin Ratio Lipase Urine Color Urine Appearance Urine pH Ur Specific [place] Urine Protein Urine Glucose (UA) Urine Ketones Urine Occult Blood Urine Nitrate Urine Bilirubin Urine Urobilinogen Ur Leukocyte Esterase Urine RBC Urine WBC Ur Squamous Epith Cells Calcium Oxalate Crystal Amorphous Sediment Urine Bacteria Hyaline Casts Ur Culture Indicated? SARS-CoV-2 (PCR) Negative Assessment & Plan Assessment & Plan narrative: 1. Epigastric pain, nausea -etiology broad and not clear -symptoms are notable for quite focal and tender pain in epigastric area -suspect more likely causes are gerd, reflux esophagitis, xiphodynia, peptic ulcer -she does have known crest syndrome (esophageal dysmotility), barretts esophagus, hiatal hernia, and gerd which may gi etiology likely in this case -however her significant dehydration and tachycardia are somewhat unusual -will order gi cocktail and ppi and see if symptoms improve -further workup of note showed elevated lfts, cholelithiasis but no evidence of cholecystitis -doubt gallbladder as source of pain -lipase normal -doubt liver as source of pain, but will trend lfts, and consider further workup if labs not improving -CT read as diverticulitis, will continue antibiotics for now, though her symptoms are completely consistent with diverticulitis due to area of pain -order chest xray to evaluate for lung pathology, widened mediastinum -ekg showed sinus tachycardia, and troponin negative doubt cardiac etiology 2. Hypercalcemia -etiology not clear -she does not have any knowledge of previous episode of high calcium -will give IV fluids and trend -check pth -elevated calcium may be related to gi symptoms, discomfort is usually more generalized and she has focal discomfort 3. CKD stage 2 -per patient gfr usually in the 50s -creatinine on admission 1.19, suspect near baseline -repeat after receiving fluids 4. Elevated liver function tests -unknown of acute or chronic -etiology broad -doubt this is source of abdominal pain with no sigifnicant findings in the liver on imaging -trend lfts daily -order ggt to better distinguish if alk phos elevation related to gi or bony process 5. CREST syndrome -hold hydroxychloroquine for now I have obtained history and discussed plan with patient. I have discussed plan of care with ED physician and bedside nurse. I have reviewed labs, EKG, CT abdomen. CODE: Full Proxy: Orin Hillman, sister
[2022-06-22] MEDS: MAG HYDROX/ALUMINUM/SIMETH SUS 20 ML, LIDOCAINE VISCOUS 2% 15 ML PO (03:19)
[2022-06-22] MEDS: LACTATED RINGERS 1,000 ML 200 ML IV ×4 (03:19→18:57)
--- NOTE | 2022-06-22 03:32 | PC.NURSE ---
Pt. arrived to the unit at 0205 via wheelchair, transfer from chair to bed independently. Pt. is pleasant and is a&o. Oriented to room and call light use. Call light within reach and bed in lowest position with brakes on. LR started at 200 ml/hr via 20 g in RAC and GI cocktail administered. Pt. no c/o pain at this time.
[2022-06-22 05:27] LABS: Add Manual Diff / Slide Review NO; Basophils Absolute Auto 100 /uL (0-100); Basophils Percent Auto 0.7 % (0-2); Eosinophils Absolute Auto 600 /uL (0-450); Eosinophils Percent Auto 7.9 % (2-4); Hematocrit 34.5 % (36-46); Hemoglobin 11.3 g/dL (12.0-16.0); Lymphocytes Absolute Auto 1500 /uL (1100-4500); Lymphocytes Percent Auto 20.4 % (25-40); Mean Corpuscular HGB Conc 32.9 % (30-36); Mean Corpuscular Volume 70.1 fL (80-100); Monocytes Absolute Auto 900 /uL (0-900); Monocytes Percent Auto 12.1 % (3-14); Neutrophils Absolute Auto 4500 /uL (1500-7000); Neutrophils Percent Auto 58.9 % (50-75); Platelet Count 249 X10^3/uL (150-400); Red Blood Cell Count 4.93 X10^6/uL (4.0-5.2); Red Cell Distribution Width 18.7 % (11.6-14.8); White Blood Cell Count 7.6 X10^3/uL (4.5-11.0)
[2022-06-22] MEDS: PIPERACILLIN/TAZO 3.375 GM in SODIUM CHLORIDE 0.9% 100 ML IV ×3 (05:28→21:45)
[2022-06-22 05:32] LABS: Alanine Aminotransferase 53 IU/L (<35); Albumin 2.9 g/dL (3.5-5.0); Alkaline Phosphatase 283 U/L (38-126); Aspartate Aminotransferase 42 IU/L (14-36); BUN Creatinine Ratio 14.4 (6-22); Bilirubin Total 0.7 mg/dL (0.2-1.3); Bilirubin Unconjugated 0.4 mg/dL (0.0-1.1); Blood Urea Nitrogen 18 mg/dL (7-17); Calcium 11.4 mg/dL (8.4-10.2); Carbon Dioxide 27 mmol/L (22-32); Chloride 101 mmol/L (98-107); Estimated Glomerular Filt Rate 46 mL/min (>60); Gamma Glutamyl Transpeptidase 110 U/L (12-43); Globulin 2.9 g/dL (1.7-4.1); Glucose 107 mg/dL (80-110); HEMOLYSIS < 15 (0-50); Sodium 133 mmol/L (137-145); Total Protein 5.8 g/dL (6.3-8.2)
[2022-06-22] MEDS: ONDANSETRON 4 MG/2 ML INJ IV ×2 (08:40→14:44)
[2022-06-22] MEDS: HEPARIN 5,000 UNIT/ML VIAL 5000 UNIT SUBCUT ×2 (08:59→21:46)
[2022-06-22] MEDS: PANTOPRAZOLE 40 MG VIAL IV (08:59)
--- NOTE | 2022-06-22 11:05 | CM.DANOTE ---
Discharge Assessment: Patient is a 71 yr old female who was admitted for abdominal pain. CM met with patient at the bedside and explained role. Patient stated understanding and she was A&O x4. Patient currently lives in [place] with her brother and sister in law. patient lives in a single level home with 3 stairs to get into the home. Patient during CM visit was able to get up from bed and walk to the bathroom unassisted. Patient states she is independent with all ADLs and drives at baseline. CM discussed HH if it would be needed at [facility]. Patient stated she is open to it if it is necessary but doesn't feel it will be needed. Insurance: [facility] [facility] and Medicare PCP Maik Carrasco Plan: DC home with brother and [id number] when medially stable. Patient sister in law Orin will provide transportation home via POV. CM team will follow to assist with any new DC planning needs that may arise. Carolyn Lopez RNcoding technician Discharge Planning/Care Management CM Discharge Assessment Start: 06/22/22 11:02 Freq: Status: Active Protocol: Document 06/22/22 11:02 (Rec: 06/22/22 11:04 [id number]) Discharge Planning Assessment Assigned Collections Curator Carolyn Lopez RNcoding technician DPOA/Assigned Designee Name Issa Hillman- Contact Information [phone] Advance Directives? No History Provided By Patient Prior Living Arrangements House Household Members family Type of transporation used prior to Drives own vehicle admit Independent with ADL's Yes Is patient alert and oriented? Yes Caregiver for Another No DME Already Rented / Owned FWW / Walker,Cane Comment has Cane and FWW at home and uses a FWW for long walks but doesnt use DME on a regular basis Barriers to Discharge No Discharge Plan Home Referrals Initiated None needed Medicare Choice List Provided Yes Medicare choice list reviewed on patient electronic tablet with Whiteboard Updated in Patient Room with Yes name and ext. # of Collections Curator Review Status In Process Next Review Type Continued Stay Review
[2022-06-22] MEDS: ACETAMINOPHEN 325 MG TABLET 650 MG PO (11:17)
[2022-06-22 12:35] LABS: Lipase 30 U/L (23-300)
[2022-06-22] MEDS: OXYCODONE IR 5 MG TABLET PO (14:43)
[2022-06-22] MEDS: SODIUM CHLORIDE 0.9% 1,000 ML 100 ML IV (19:35)
[2022-06-23] VITALS (8 sets, daily range): BP systolic 120–152; BP diastolic 50–78; PULSE 71–83; RESP 16–19; TEMP 36.3–36.7; O2SAT 93–97
[2022-06-23] MEDS: ACETAMINOPHEN 325 MG TABLET 650 MG PO ×3 (00:09→22:21)
[2022-06-23] MEDS: SODIUM CHLORIDE 0.9% 1,000 ML 100 ML IV ×2 (05:07→15:07)
[2022-06-23] MEDS: PIPERACILLIN/TAZO 3.375 GM in SODIUM CHLORIDE 0.9% 100 ML IV ×3 (05:07→22:01)
[2022-06-23 05:13] LABS: Add Manual Diff / Slide Review NO; Basophils Absolute Auto 100 /uL (0-100); Eosinophils Absolute Auto 600 /uL (0-450); Eosinophils Percent Auto 9.4 % (2-4); Hematocrit 33.2 % (36-46); Hemoglobin 10.8 g/dL (12.0-16.0); Lymphocytes Absolute Auto 1400 /uL (1100-4500); Lymphocytes Percent Auto 20.6 % (25-40); Mean Corpuscular HGB Conc 32.7 % (30-36); Mean Corpuscular Hemoglobin 23.2 PG (26-34); Mean Corpuscular Volume 70.9 fL (80-100); Monocytes Absolute Auto 800 /uL (0-900); Monocytes Percent Auto 11.4 % (3-14); Neutrophils Absolute Auto 3900 /uL (1500-7000); Neutrophils Percent Auto 57.6 % (50-75); Platelet Count 229 X10^3/uL (150-400); Red Blood Cell Count 4.68 X10^6/uL (4.0-5.2); Red Cell Distribution Width 18.8 % (11.6-14.8); White Blood Cell Count 6.7 X10^3/uL (4.5-11.0)
[2022-06-23 05:24] LABS: Alanine Aminotransferase 50 IU/L (<35); Albumin 2.8 g/dL (3.5-5.0); Albumin Globulin Ratio 1.1 (1.0-2.8); Alkaline Phosphatase 227 U/L (38-126); Aspartate Aminotransferase 40 IU/L (14-36); BUN Creatinine Ratio 10.4 (6-22); Bilirubin Total 0.7 mg/dL (0.2-1.3); Blood Urea Nitrogen 14 mg/dL (7-17); Calcium 10.9 mg/dL (8.4-10.2); Carbon Dioxide 29 mmol/L (22-32); Chloride 105 mmol/L (98-107); Estimated Glomerular Filt Rate 42 mL/min (>60); Globulin 2.6 g/dL (1.7-4.1); Glucose 93 mg/dL (80-110); HEMOLYSIS < 15 (0-50); Potassium 4.1 mmol/L (3.4-5.1); Sodium 136 mmol/L (137-145); Total Protein 5.4 g/dL (6.3-8.2)
--- NOTE | 2022-06-23 06:54 | PC.NURSE ---
pt had an episode during the night were she got dizzy while going to the bathroom and then developed a headache, pt BP has been slightly low for her. Tylenol was given and headache went away. Pt had a bed alarm after this and was instructed to call staff to go to the bathroom. No further episodes of dizziness noted. Pt didn't take any narcotics last night.
[2022-06-23] MEDS: ONDANSETRON 4 MG/2 ML INJ IV ×2 (07:59→22:01)
--- NOTE | 2022-06-23 07:59 | DI.US.S_ITS ---
PROCEDURE: US RENAL COMPLETE INDICATIONS: BOBO TECHNIQUE: Real-time scanning was performed of the kidneys and bladder, with image documentation. COMPARISON: None. FINDINGS: Kidneys: Kidneys are small. Right kidney measures 9.3 cm long; left kidney measures 9.8 cm long. Right renal cortical thickness is 0.8 cm; left renal cortical thickness is 0 point cm. Renal cortical echotexture is slightly increased. No hydronephrosis or nephrolithiasis. No suspicious solid mass lesions. Bladder: Pre-void bladder volume is 169 mL. Post-void residual is 8 mL. Pre-void images demonstrate no intraluminal masses or stones. On pre-void images, both ureteral jets are noted with color Doppler interrogation. (Of note, ureteral jets may not be detectable in up to 25% of cases due to insufficient differences in specific gravity between ureteral and bladder urine). Miscellaneous: No free pelvic fluid. IMPRESSION: No acute abnormality. Increased parenchymal echogenicity within the small kidneys. Findings are suggestive of chronic kidney disease. Dictated by: Ayden Sidhu M.D. on 06/23/2022 at 9:00 Approved by: Ayden Sidhu M.D. on 06/23/2022 at 9:02
[2022-06-23] MEDS: HEPARIN 5,000 UNIT/ML VIAL 5000 UNIT SUBCUT (08:03)
[2022-06-23] MEDS: PANTOPRAZOLE 40 MG VIAL IV (08:03)
--- NOTE | 2022-06-23 15:20 | P.CONS_ITS ---
History of Present Illness Consult details Date Patient Seen: 06/23/22 Time Patient Seen: 15:20 Chief complaint: nt feeling- increase pain front/back ab pain Narrative: Homero is a 71-year-old woman who presented with epigastric discomfort and nausea. She has been ill since before . She would a CT scan and an ultrasound which showed a distended gallbladder without inflammation and some likely cholelithiasis. She also had a very mild elevation of alkaline phosphatase. Meds Home Medications and Allergies Home Medications Medication Instructions Recorded Confirmed Type albuterol sulfate 90 mcg/actuation 1 puff inhalation PRN PRN Allergy 06/22/22 06/22/22 History aerosol inhaler Symptoms azelastine 137 mcg (0.1 %) nasal 1 spray intranasal PRN PRN 06/22/22 06/22/22 History spray aerosol Allergic Symptoms furosemide 20 mg tablet (Lasix) 20 mg PO DAILY 06/22/22 06/22/22 History hydroxychloroquine 200 mg tablet 200 mg PO DAILY 06/22/22 06/22/22 History omeprazole 40 mg capsule,delayed 40 mg PO BID 06/22/22 06/22/22 History release valsartan 40 mg tablet 40 mg PO DAILY 06/22/22 06/22/22 History Allergies Allergy/AdvReac Type Severity Reaction Status Date / Time codeine Allergy Verified 06/21/22 21:30 tetracycline Allergy Verified 06/21/22 21:30 Exam Vital Signs (past 8 hours): - 06/23/22 08:00 06/23/22 10:00 06/23/22 11:48 Temperature 97.6 F 97.4 F L Pulse Rate 74 80 Pulse Rate [Orthostatic Lying] Pulse Rate [Orthostatic Sitting] Pulse Rate [Orthostatic Standing] Respiratory Rate 16 16 Blood Pressure 120/50 L 121/54 L Blood Pressure [Orthostatic Lying] Blood Pressure [Orthostatic Sitting] Blood Pressure [Orthostatic Standing] Pulse Oximetry 93 93 97 Oxygen Delivery Method Room Air Oxygen Flow Rate 0 06/23/22 14:00 06/23/22 14:45 Temperature Pulse Rate Pulse Rate [Orthostatic Lying] 71 Pulse Rate [Orthostatic Sitting] 75 Pulse Rate [Orthostatic Standing] 82 Respiratory Rate Blood Pressure Blood Pressure [Orthostatic Lying] 133/54 L Blood Pressure [Orthostatic Sitting] 148/68 H Blood Pressure [Orthostatic Standing] 152/78 H Pulse Oximetry 97 Oxygen Delivery Method Room Air Oxygen Flow Rate 0 Oxygen Delivery Method Room Air Oxygen Flow Rate 0 Narrative Exam Narrative: Tenderness to palpation in the right upper quadrant with a positive Clemente sign Objective Labs 06/23/22 04:20 06/23/22 04:20 Labs: Laboratory Results - last 24 hr 06/23/22 06/23/22 04:20 04:20 WBC 6.7 RBC 4.68 Hgb 10.8 L Hct 33.2 L MCV 70.9 L MCH 23.2 L MCHC 32.7 RDW 18.8 H Plt Count 229 Neut % (Auto) 57.6 Lymph % (Auto) 20.6 L [place] % (Auto) 11.4 Eos % (Auto) 9.4 H Baso % (Auto) 1.0 Neut # (Auto) 3900 Lymph # (Auto) 1400 [place] # (Auto) 800 Eos # (Auto) 600 H Baso # (Auto) 100 Sodium 136 L Potassium 4.1 Chloride 105 Carbon Dioxide 29 BUN 14 Creatinine 1.35 H Estimated GFR 42 L BUN/Creatinine Ratio 10.4 Glucose 93 Calcium 10.9 H Total Bilirubin 0.7 AST 40 H ALT 50 H Alkaline Phosphatase 227 H Total Protein 5.4 L Albumin 2.8 L Globulin 2.6 Albumin/Globulin Ratio 1.1 PFSH Social History household members: family Tobacco & Substance Use Smoking Status: Never smoker alcohol intake: former Assessment & Plan Assessment and plan (1) Acute cholecystitis: Status: Acute Plan I suspect her symptoms are primarily due to acute cholecystitis versus symptomatic cholelithiasis. She may also have passed a gallstone since she has mildly elevated alkaline phosphatase. I recommended we proceed with a laparos copic cholecystectomy with intraoperative cholangiogram tomorrow. I will put her on the schedule today. NPO at midnight tonight and hold Lovenox.
--- NOTE | 2022-06-23 15:38 | PM.PN.1 ---
Subjective Subjective Interval history: Patient still having epigastric pain and nausea today. Gen surg consulted who thinks acute cholecystitis is the source and plans to take for lap noni. Exam Vital Signs (past 8 hours): - 06/23/22 08:00 06/23/22 10:00 06/23/22 11:48 Temperature 97.6 F 97.4 F L Pulse Rate 74 80 Pulse Rate [Orthostatic Lying] Pulse Rate [Orthostatic Sitting] Pulse Rate [Orthostatic Standing] Respiratory Rate 16 16 Blood Pressure 120/50 L 121/54 L Blood Pressure [Orthostatic Lying] Blood Pressure [Orthostatic Sitting] Blood Pressure [Orthostatic Standing] Pulse Oximetry 93 93 97 Oxygen Delivery Method Room Air Oxygen Flow Rate 0 06/23/22 14:00 06/23/22 14:45 Temperature Pulse Rate Pulse Rate [Orthostatic Lying] 71 Pulse Rate [Orthostatic Sitting] 75 Pulse Rate [Orthostatic Standing] 82 Respiratory Rate Blood Pressure Blood Pressure [Orthostatic Lying] 133/54 L Blood Pressure [Orthostatic Sitting] 148/68 H Blood Pressure [Orthostatic Standing] 152/78 H Pulse Oximetry 97 Oxygen Delivery Method Room Air Oxygen Flow Rate 0 Oxygen Delivery Method Room Air Oxygen Flow Rate 0 Narrative Exam Narrative: GEN: appears uncomfortable HEENT: dry mucous membranes, PERRL NECK: trachea midline, no JVD PULM: clear bilaterally, no wheezes, rhonchi, rales CV: tachycardic, systolic murmur noted ABD: soft, nondistended, epigastric tenderness EXT: warm and well pefused with no edema NEURO: awake, alert, oriented, with no focal deficits Objective Labs 06/23/22 04:20 06/23/22 04:20 Labs: Laboratory Results - last 24 hr 06/23/22 06/23/22 04:20 04:20 WBC 6.7 RBC 4.68 Hgb 10.8 L Hct 33.2 L MCV 70.9 L MCH 23.2 L MCHC 32.7 RDW 18.8 H Plt Count 229 Neut % (Auto) 57.6 Lymph % (Auto) 20.6 L [place] % (Auto) 11.4 Eos % (Auto) 9.4 H Baso % (Auto) 1.0 Neut # (Auto) 3900 Lymph # (Auto) 1400 [place] # (Auto) 800 Eos # (Auto) 600 H Baso # (Auto) 100 Sodium 136 L Potassium 4.1 Chloride 105 Carbon Dioxide 29 BUN 14 Creatinine 1.35 H Estimated GFR 42 L BUN/Creatinine Ratio 10.4 Glucose 93 Calcium 10.9 H Total Bilirubin 0.7 AST 40 H ALT 50 H Alkaline Phosphatase 227 H Total Protein 5.4 L Albumin 2.8 L Globulin 2.6 Albumin/Globulin Ratio 1.1 PFSH Social History household members: family Smoking Status: Never smoker alcohol intake: former Assessment & Plan Assessment & Plan narrative: 1. Epigastric pain, nausea 2/2 likely acute cholecystitis -Dr. Hernandez, gen surg consulted who thinks pain and NV from acute cholecysitis due to positive duarte's and elevated LFT's/alk phos, abd US showed gallbladder sludge -lipase normal and no evidence of pancreatitis on CT abd -continue zosyn -NPO at midnight for lap noni on 06/24 2. Hypercalcemia, improving -likely due to dehydration -PTH pending -downtrending with IVF 3. CKD stage 2 -per patient gfr usually in the 50s, currently in 40's -creatinine on admission 1.19, suspect near baseline but uptrending some despite fluids -patient with good UO -continue IVF -renal US negative 4. Elevated liver function tests -likely due to acute noni -abd US negative -trend lfts daily 5. CREST syndrome -hold hydroxychloroquine for now I have obtained history and discussed plan with patient. I have discussed plan of care with ED physician and bedside nurse. I have reviewed labs, EKG, CT abdomen. CODE: Full Proxy: Orin Hillman, sister Dispo: Pending lap noni on 06/23. Quality VTE Deep Vein Thrombosis/Pulmonary Embolism Present on Admission: Yes
[2022-06-23] MEDS: SENNOSIDES 8.6 MG TABLET PO (19:43)
[2022-06-24] VITALS (19 sets, daily range): BP systolic 144–171; BP diastolic 55–88; PULSE 67–96; RESP 13–20; TEMP 36.2–37.1; O2SAT 91–98; BMI 38.5
--- NOTE | 2022-06-24 | PATH_ITS ---
[facility] Accession Number: [id number] No. of containers..01 Tissue . 01 Material submitted: . gallbladder - GALLBLADDER . 01 Diagnosis: Gallbladder, Cholecystectomy: Changes consistent with chronic cholecystitis. Negative for dysplasia and neoplasia. MRV 07/01/2022 1543 Local . 01 Electronically signed: . Glenda Montilla MD, Pathologist NPI- [id number] . 01 Gross description: . The specimen is received in formalin labeled with the patient's name, , and gallbladder, and consists of a disrupted gallbladder measuring 7.6 x 3.3 x 0.7 cm. The serosa is congested and smooth with a full-thickness defect at the fundus measuring 1.1 cm in greatest dimension. The cystic duct is received closed with a clamp, is inked blue, and no pericystic lymph node is identified. The lumen contains green mucoid bile with no calculi identified in the lumen or the container. The mucosa is green to matt and velvety with no pinpoint yellow areas of discoloration, polyps or lesions identified. The griggs average 0.2 cm thick. Bottom Saw Operator sections to include the cystic duct margin and full-thickness sections are submitted in cassette A1. ([id number]) /MRV 06/26/2022 1251 Local . 01 Pathologist provided ICD-10: K81.1 . 01 CPT . 042415 Performed at: [facility] [address] [place] [address], [place], [place] [id number] MD Saroj Lorenzo MD Phone: [phone]
[2022-06-24] MEDS: SODIUM CHLORIDE 0.9% 1,000 ML 100 ML IV ×2 (00:56→11:21)
[2022-06-24 05:08] LABS: Add Manual Diff / Slide Review NO; Basophils Absolute Auto 100 /uL (0-100); Basophils Percent Auto 1.1 % (0-2); Eosinophils Absolute Auto 800 /uL (0-450); Eosinophils Percent Auto 10.4 % (2-4); Hematocrit 33.5 % (36-46); Hemoglobin 10.8 g/dL (12.0-16.0); Lymphocytes Absolute Auto 1600 /uL (1100-4500); Lymphocytes Percent Auto 20.2 % (25-40); Mean Corpuscular HGB Conc 32.4 % (30-36); Mean Corpuscular Volume 71.1 fL (80-100); Monocytes Absolute Auto 900 /uL (0-900); Monocytes Percent Auto 11.7 % (3-14); Neutrophils Absolute Auto 4400 /uL (1500-7000); Neutrophils Percent Auto 56.6 % (50-75); Platelet Count 271 X10^3/uL (150-400); Red Blood Cell Count 4.71 X10^6/uL (4.0-5.2); Red Cell Distribution Width 19.1 % (11.6-14.8); White Blood Cell Count 7.8 X10^3/uL (4.5-11.0)
[2022-06-24 05:24] LABS: Alanine Aminotransferase 45 IU/L (<35); Alkaline Phosphatase 238 U/L (38-126); Aspartate Aminotransferase 40 IU/L (14-36); BUN Creatinine Ratio 8.7 (6-22); Bilirubin Total 0.5 mg/dL (0.2-1.3); Blood Urea Nitrogen 10 mg/dL (7-17); Calcium 11.3 mg/dL (8.4-10.2); Carbon Dioxide 27 mmol/L (22-32); Chloride 106 mmol/L (98-107); Estimated Glomerular Filt Rate 51 mL/min (>60); Globulin 2.9 g/dL (1.7-4.1); Glucose 94 mg/dL (80-110); HEMOLYSIS < 15 (0-50); Potassium 3.7 mmol/L (3.4-5.1); Sodium 137 mmol/L (137-145); Total Protein 5.9 g/dL (6.3-8.2)
[2022-06-24] MEDS: PIPERACILLIN/TAZO 3.375 GM in SODIUM CHLORIDE 0.9% 100 ML IV ×2 (06:02→13:51)
[2022-06-24] MEDS: PANTOPRAZOLE 40 MG VIAL IV (09:24)
[2022-06-24] MEDS: ONDANSETRON 4 MG/2 ML INJ IV ×2 (09:24→13:51)
[2022-06-24] MEDS: ACETAMINOPHEN 325 MG TABLET 650 MG PO (09:25)
--- NOTE | 2022-06-24 12:43 | PM.PN.1 ---
Subjective Subjective Interval history: Patient still having epigastric pain and mild nausea today, though improving today but she has been npo for planned cholecystectomy this afternoon. No fever, chills, no shortness of breath or chest pain. She is feeling a bit worried about her BP prior to surgery because her brother had a stroke after having his gallbadder taken out. She also does note BP drops quite a bit after surgeries previously. Exam Vital Signs (past 8 hours): - 06/24/22 08:00 06/24/22 11:20 Temperature 98.8 F 98.3 F Pulse Rate 76 74 Respiratory Rate 18 18 Blood Pressure 154/63 H 171/87 H Pulse Oximetry 96 94 Oxygen Flow Rate 0 0 Oxygen Delivery Method Room Air Oxygen Flow Rate 0 Narrative Exam Narrative: GEN: appears uncomfortable HEENT: dry mucous membranes, PERRL NECK: trachea midline, no JVD PULM: clear bilaterally, no wheezes, rhonchi, rales CV: tachycardic, systolic murmur noted ABD: soft, nondistended, epigastric tenderness EXT: warm and well pefused with no edema NEURO: awake, alert, oriented, with no focal deficits Objective Labs 06/24/22 04:35 06/24/22 04:35 Labs: Laboratory Results - last 24 hr 06/24/22 06/24/22 04:35 04:35 WBC 7.8 RBC 4.71 Hgb 10.8 L Hct 33.5 L MCV 71.1 L MCH 23.0 L MCHC 32.4 RDW 19.1 H Plt Count 271 Neut % (Auto) 56.6 Lymph % (Auto) 20.2 L [place] % (Auto) 11.7 Eos % (Auto) 10.4 H Baso % (Auto) 1.1 Neut # (Auto) 4400 Lymph # (Auto) 1600 [place] # (Auto) 900 Eos # (Auto) 800 H Baso # (Auto) 100 Sodium 137 Potassium 3.7 Chloride 106 Carbon Dioxide 27 BUN 10 Creatinine 1.15 H Estimated GFR 51 L BUN/Creatinine Ratio 8.7 Glucose 94 Calcium 11.3 H Total Bilirubin 0.5 AST 40 H ALT 45 H Alkaline Phosphatase 238 H Total Protein 5.9 L Albumin 3.0 L Globulin 2.9 Albumin/Globulin Ratio 1.0 [facility] Medical History (Updated 06/24/22 @ 07:46 by Gi Perdomo RN) Abnormal colonoscopy 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 Epigastric pain, nausea 2/2 likely acute cholecystitis -Dr. Hernandez, gen surg consulted who thinks pain and NV from acute cholecysitis due to positive duarte's and elevated LFT's/alk phos, abd US showed gallbladder sludge -lipase normal and no evidence of pancreatitis on CT abd -continue zosyn -lap noni today, will see how she responds after surgery/ 2. Hypercalcemia, improved -likely due to dehydration, though increased slightly to 11.3 today. -PTH pending -downtrending with IVF 3. CKD stage 2 -per patient gfr usually in the 50s, currently in 40's -creatinine on admission 1.19, suspect near baseline now but did uptrend previously. -patient with good UO -continue IVF -renal US negative 4. Elevated transaminase levels -likely due to acute noni -abd US as noted above. -trend lfts daily 5. CREST syndrome -hold hydroxychloroquine for now I have obtained history and discussed plan with patient. I have discussed plan of care with ED physician and bedside nurse. I have reviewed labs, EKG, CT abdomen. CODE: Full Proxy: Orin Hillman, sister Dispo: Pending lap noni on 06/24, hopefully discharge home tomorrow. Quality VTE Deep Vein Thrombosis/Pulmonary Embolism Present on Admission: Yes
[2022-06-24] MEDS: LACTATED RINGERS 1,000 ML 200 ML IV ×2 (14:51→16:13)
--- NOTE | 2022-06-24 15:48 | SUR.OPER ---
Supine on padded OR bed, head on pillow, safety belt at thigh, left arm padded and tucked at side. Right arm secured on padded arm board <90 degrees abduction. Legs uncrossed. Padded footboard in place. Tape over blanket to secure lower legs.
[2022-06-24] MEDS: BUPIVACAINE 0.5% (PF) 30 ML, EPINEPHrine 0.15 MG INJ (15:57)
[2022-06-24] MEDS: IOPAMIDOL 30 ML VIAL INJ (16:15)
--- NOTE | 2022-06-24 16:16 | DI.RAD.S_ITS ---
PROCEDURE: XR CHOLANGIOGRAM OPERATIVE INDICATIONS: CHOLECYSTECTOMY COMPARISON: None. FINDINGS: Biliary ducts: The surgeon injected contrast into the biliary ducts after cannulation of the cystic duct stump. Visualized intra- and extrahepatic bile ducts are normal in caliber, without strictures. No intraluminal filling defects to suggest retained ductal stones or sludge. No evidence for iatrogenic ductal injury. Duodenum: Contrast flows promptly through the sphincter of Oddi into the duodenum, which appears normal in caliber. IMPRESSION: Normal intraoperative cholangiogram. Dictated by: Traci Bee M.D. on 06/25/2022 at 15:17 Approved by: Traci Bee M.D. on 06/25/2022 at 15:17
--- NOTE | 2022-06-24 16:42 | PM.OP.1 ---
Operative Date/Time/Diagnoses Date of procedure: 06/24/22 Time of procedure: 16:42 Pre-op diagnosis: Gallstones Post-op diagnosis: same Procedure & Clinicians Procedure: Laparoscopic cholecystectomy with intraoperative cholangiogram Same procedure as scheduled: Yes Surgeon: Byron Hernandez Anesthesia Type: General Operative Notes Procedure in detail: The patient was given preoperative antibiotic. The patient was brought to the operating room, placed on the table in the supine position. General endotracheal anesthesia was induced. The abdomen was prepped and draped. A time-out was performed. We made a 1 cm infraumbilical incision. We dissected down to the base of the umbilical stalk using cautery. We grasped the umbilical stalk with a Yunior clamp to elevate the abdominal wall. We scored the fascia in the midline with cautery 1 cm. We pierced the peritoneum with a Peon clamp. The Clint port was placed and the abdomen was insufflated to 15 mmHg. A 5 mm 30 degree laparoscopic was inserted. There was no evidence of any injury from the entry. Next, we placed 5 mm ports in the subxiphoid position and right upper quadrant at the midclavicular line and anterior axillary line. The patient was then positioned in reverse Trendelenburg and the table was tilted to the left. The gallbladder was rather distended and was partially decompressed with the needle and 30 mL of dark green bile were drained. The gallbladder was then grasped at the dome and retracted cephalad. There were some adhesions of mesenteric tissue to the gallbladder which were carefully dissected with cautery to allow full retraction of the gallbladder. We then dissected the cystic structures with a combination of hook cautery and blunt dissection. We obtained a critical view. Next, a cholangiogram was performed using the 6 Syriac ureteral catheter. There was good flow of contrast into the duodenum and liver with no obvious filling defects. The cystic duct-common duct junction was well visualized. We then placed hemoclips on the cystic duct and artery and divided the cystic duct and artery sharply between the clips. The gallbladder was then dissected off the liver and placed in a specimen retrieval bag. We irrigated the right upper quadrant and all the aspirate returned clear. We then removed the 5 mm ports under direct vision we removed the Clint port. We then injected some local into the fascia and closed the fascia with 2 interrupted 0 Vicryl sutures. The skin incisions were closed with 4 Monocryl and Steri-Strips were applied. Band-Aids were applied over the Steri-Strips. EBL: 20 mL Specimen: Gallbladder Post-operative Condition: stable Disposition: PACU
[2022-06-24] MEDS: HYDROMORPHONE 2 MG INJ IV ×2 (17:08→17:14)
[2022-06-24] MEDS: SENNOSIDES 8.6 MG TABLET 17.2 MG PO (20:22)
[2022-06-24] MEDS: PANTOPRAZOLE DR 40 MG TABLET PO (20:22)
[2022-06-24] MEDS: ACETAMINOPHEN 325 MG TABLET 975 MG PO (20:22)
[2022-06-25 01:00] VITALS: O2SAT 98
[2022-06-25] MEDS: OXYCODONE IR 5 MG TABLET PO ×2 (01:24→05:56)
[2022-06-25 02:00] VITALS: BP 177/69; PULSE 82; RESP 16; TEMP 36.6; O2SAT 94
[2022-06-25 05:00] VITALS: O2SAT 96
[2022-06-25 05:02] VITALS: BP 179/72; PULSE 80; RESP 16; TEMP 36.6; O2SAT 94
[2022-06-25 05:47] LABS: Add Manual Diff / Slide Review NO; Basophils Absolute Auto 100 /uL (0-100); Basophils Percent Auto 0.4 % (0-2); Eosinophils Absolute Auto 0 /uL (0-450); Eosinophils Percent Auto 0.3 % (2-4); Hematocrit 34.6 % (36-46); Hemoglobin 11.4 g/dL (12.0-16.0); Lymphocytes Absolute Auto 1600 /uL (1100-4500); Mean Corpuscular HGB Conc 33.1 % (30-36); Mean Corpuscular Hemoglobin 23.3 PG (26-34); Mean Corpuscular Volume 70.5 fL (80-100); Monocytes Absolute Auto 1200 /uL (0-900); Monocytes Percent Auto 8.4 % (3-14); Neutrophils Absolute Auto 11800 /uL (1500-7000); Neutrophils Percent Auto 79.9 % (50-75); Platelet Count 342 X10^3/uL (150-400); Red Blood Cell Count 4.91 X10^6/uL (4.0-5.2); Red Cell Distribution Width 19.8 % (11.6-14.8); White Blood Cell Count 14.8 X10^3/uL (4.5-11.0)
[2022-06-25] MEDS: PANTOPRAZOLE DR 40 MG TABLET PO (06:00)
[2022-06-25 06:09] LABS: Alanine Aminotransferase 81 IU/L (<35); Albumin 3.4 g/dL (3.5-5.0); Albumin Globulin Ratio 1.2 (1.0-2.8); Alkaline Phosphatase 215 U/L (38-126); Aspartate Aminotransferase 87 IU/L (14-36); BUN Creatinine Ratio 10.4 (6-22); Bilirubin Total 0.5 mg/dL (0.2-1.3); Blood Urea Nitrogen 11 mg/dL (7-17); Calcium 11.5 mg/dL (8.4-10.2); Carbon Dioxide 28 mmol/L (22-32); Chloride 101 mmol/L (98-107); Estimated Glomerular Filt Rate 56 mL/min (>60); Globulin 2.8 g/dL (1.7-4.1); Glucose 97 mg/dL (80-110); HEMOLYSIS < 15 (0-50); Potassium 3.9 mmol/L (3.4-5.1); Sodium 137 mmol/L (137-145); Total Protein 6.2 g/dL (6.3-8.2)
[2022-06-25 09:00] VITALS: O2SAT 95
[2022-06-25 09:30] VITALS: BP 178/90; PULSE 95; RESP 18; TEMP 37.2; O2SAT 96
[2022-06-25] MEDS: VALSARTAN 80 MG TABLET 40 MG PO (09:33)
[2022-06-25] MEDS: HYDROXYCHLOROQUINE 200 MG TABLET PO (09:34)
[2022-06-25] MEDS: ONDANSETRON 4 MG/2 ML INJ IV (09:34)
--- NOTE | 2022-06-25 12:12 | PM.DS.1 ---
History of Present Illness History of Present Illness Date Patient Seen: 06/25/22 Time Patient Seen: 12:12 Chief complaint: nt feeling- increase pain front/back ab pain Narrative: Ms. 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 She states she has felt poorly for at least a week. She has had epigastric discomfort, it is fairly pinpoint right at the xiphoid process and radiates to the back. She notes worse when pain she takes a breath. She has nausea and poor appetite. She has had night sweats every night for a week. She has no fevers. She has lost no weight. She feels dehyrated, and she feels dizzy while standing. No diarrhea, or vomiting. She does not think this feels like her usual GERD symptoms. She had a endoscopy in January that showed Carlos's, she has never had any peptic ulcers. Colonoscopy was 4 years ago and had polyps. Her CREST has been worsening and she started hydroxychloroquine a few months ago. In the ED workup was done, vitals notable for afebrile, heart rate in the 120s, respiratory rate 18, blood pressure 140s/80s, sats 96% on room air. Labs reviewed by me and notable for WBC 12.7, hgb 13, plts 319. Na 132, creatinine 1.19. Calcium 12.1, AST/ALT 48/67. alk phos 380. Lactate 1.3. Troponin negative. CT abdomen reviewed by me and showed hiatal hernia, possible diverticulitis in the colon. Ultrasound of the abdomen showed cholelithiasis and no cholecystitis. She was given antibiotics and her heart rate improve and she was admitted for further treatment. Discharge Providers Provider Date of admission: 06/23/22 10:05 Discharge Date: 06/25/22 Primary care physician: Maik Carrasco DO Consults: 06/23/22 12:23 Consult to General Surgery Routine Comment: Consulting Provider: Byron Hernandez Reason for consultation: NV, epigastric pain Discharge provider: Jhony York DO Summary Hospital Course Discharge Diagnosis: 1. Epigastric pain, nausea 2/2 likely acute cholecystitis 2. Hypercalcemia, improved 3. CKD stage 2 4. Elevated transaminase levels 5. CREST syndrome Hospital Course: 72 F with PMH of CKD, CREST syndrome who was admitted with abdominal pain, ultimately found to have acute cholecystitis. She was initially managemed with zosyn for antibiotic therapy with mild improvement. She underwent laparoscopic cholecystectomy with general surgery. She had an uncomplicated post operative course with improvement in symptoms. She was eating and tolerating a diet at the time of discharge with controlled inciaional pain only and resolution of her presenting symptoms. She was also found to be hypercalcemic, improved with fluids, though remained borderline elevated. PTH level was low at 9. I recommend further evaluation with primary care provider for further outpatient evaluation for her mild hypocalcemia. Time Spent with Patient Time spent: Greater than 30 minutes Exam Vital Signs (past 8 hours): - 06/25/22 05:02 06/25/22 05:00 06/25/22 09:00 Temperature 97.9 F Pulse Rate 80 Respiratory Rate 16 Blood Pressure 179/72 H Pulse Oximetry 94 96 95 Oxygen Delivery Method Nasal Cannula Room Air Oxygen Flow Rate 3 2 0 06/25/22 09:30 Temperature 98.9 F Pulse Rate 95 H Respiratory Rate 18 Blood Pressure 178/90 H Pulse Oximetry 96 Oxygen Delivery Method Oxygen Flow Rate 0 Oxygen Delivery Method Room Air Oxygen Flow Rate 0 Narrative Exam Narrative: GEN: appears uncomfortable HEENT: dry mucous membranes, PERRL NECK: trachea midline, no JVD PULM: clear bilaterally, no wheezes, rhonchi, rales CV: RRR, systolic murmur noted ABD: soft, nondistended, appropriately tender EXT: warm and well pefused with no edema NEURO: awake, alert, oriented, with no focal deficits Objective Labs 06/25/22 05:00 06/25/22 05:00 Labs: Laboratory Results - last 24 hr 06/25/22 06/25/22 05:00 05:00 WBC 14.8 H D RBC 4.91 Hgb 11.4 L Hct 34.6 L MCV 70.5 L MCH 23.3 L MCHC 33.1 RDW 19.8 H Plt Count 342 Neut % (Auto) 79.9 H D Lymph % (Auto) 11.0 L [place] % (Auto) 8.4 Eos % (Auto) 0.3 L Baso % (Auto) 0.4 Neut # (Auto) 34266 H Lymph # (Auto) 1600 [place] # (Auto) 1200 H Eos # (Auto) 0 Baso # (Auto) 100 Sodium 137 Potassium 3.9 Chloride 101 Carbon Dioxide 28 BUN 11 Creatinine 1.06 H Estimated GFR 56 L BUN/Creatinine Ratio 10.4 Glucose 97 Calcium 11.5 H Total Bilirubin 0.5 AST 87 H ALT 81 H Alkaline Phosphatase 215 H Total Protein 6.2 L Albumin 3.4 L Globulin 2.8 Albumin/Globulin Ratio 1.2 PFSH Medical History (Updated 06/24/22 @ 07:46 by Gi Perdomo RN) Abnormal colonoscopy Carlos's esophagus determined by endoscopy Barretts esophagus Chronic kidney disease Colon polyps CREST syndrome Esophageal dysmotility GERD (gastroesophageal reflux disease) Hiatal hernia Hypertension Iron deficiency Pancreatitis Systolic murmur Social History household members: family Smoking Status: Never smoker alcohol intake: former Discharge Plan Discharge Plan Patient Disposition: Home Provider Discharge Comment: You were admitted to the hospital with an infection of your gallbladder, which was removed by the general surgeons. The surgical clinic should call you with a follow up visit. Pain medications were sent to your pharmacy, otherwise no medication changes are necessary at discharge. Discharge orders & Medications Prescriptions: New acetaminophen 325 mg Tablet 975 mg PO Q8H PRN (Reason: Pain, Mild (1-3)) Qty: 90 0RF tramadol 50 mg Tablet 50 mg PO QID PRN (Reason: Pain, Moderate (4-6)) Qty: 20 0RF oxycodone 5 mg Tablet 5 mg PO Q3HR PRN (Reason: Pain, Moderate (4-6)) Qty: 10 0RF Continued valsartan 40 mg tablet 40 mg PO DAILY omeprazole 40 mg capsule,delayed release(DR/EC) 40 mg PO BID Patient Comments: TAKE 1 CAPSULE BY MOUTH 2 TIMES DAILY 30 MINUTES PRIOR TO MEALS hydroxychloroquine 200 mg tablet 200 mg PO DAILY furosemide [Lasix] 20 mg Tablet 20 mg PO DAILY albuterol sulfate 90 mcg/actuation HFA aerosol inhaler 1 puff INHALATION PRN PRN (Reason: Allergy Symptoms) Patient Comments: INHALE 1-2 PUFFS BY MOUTH EVERY 4 - 6 HOURS NEEDED. WAIR FOR 1 MIN BETWEEN PUFFS. MAX 10 PUFF/DAY azelastine 137 mcg (0.1 %) aerosol,spray 1 spray INTRANASAL PRN PRN (Reason: Allergic Symptoms) Patient Comments: INHALE 2 SPRAYS NASALLY 2 TIMES DAILY NEEDED FOR OTHER (NASAL ALLERGIES). Follow up/Referrals: Byron Hernandez MD [Physician] - (s/p cholecystectomy ) Maik Carrasco DO [Primary Care Provider] - Diet/Activity/Treatments Diet: Diet as Tolerated Activity: As tolerated Visit Report/Discharge Packet Instructions: DI for Laparoscopic Cholecystectomy, [place] [facility]: Wound Care Stand Alone Forms: Patient Portal/API, Stroke Signs & Symptoms Discharge Data Primary Care Provider: Maik Carrasco Discharges patient from system. Discharge Date/Time: 06/25/22 12:40 Quality VTE Deep Vein Thrombosis/Pulmonary Embolism Present on Admission: Yes
[2022-06-25 13:38] LABS: Calcium 11.2 mg/dL (8.7-10.3); Parathyroid Hormone, Intact 9 pg/mL (15-65)
== END 2022-06-25 12:40 | disposition home or self-care (01) | DRG 419 ==
LOC: ED 06-22 01:12 → AC 06-22 01:13
PROVIDERS: Student in an Organized Health Care Education/Training Program; Surgery; Admitting Provider Internal Medicine; Emergency Provider Emergency Medicine; PCP Family Medicine; Referring Provider Emergency Medicine; Visit Provider Internal Medicine
PROC: 0FT44ZZ Resection of Gallbladder, Percutaneous Endoscopic Approach (ICD-10-PCS; CPT 47562; principal; 2022-06-24 15:00)
DX: K81.0 Acute cholecystitis (principal); E83.52 Hypercalcemia; N18.2 Chronic kidney disease, stage 2 (mild); I12.9 Hypertensive chronic kidney disease with stage 1 through stage 4 chronic kidney disease, or unspecified chronic kidney disease; M34.1 CR(E)ST syndrome; K21.9 Gastro-esophageal reflux disease without esophagitis; Z20.822 Contact with and (suspected) exposure to COVID-19
CPT/HCPCS: 36415; 47563; 71045; 74177; 74300; 76705; 76770; 80048; 80053; 80076; 81001; 82310; 82550; 82977; 83605; 83690; 83880; 83970; 84484; 85025; 87040; 87086; 87635; 93005; 93010; 96365; 96375; 99222; 99285; C9803; G0378; C9113; J0171; J0330; J1100; J1170; J1644; J2405; J2543; J2704; J3010; Q9967

== ENCOUNTER 2023-01-06 14:24 | Emergency (ER) | payer OTHER, SELFPAY ==
[2022-07-01 13:07] VITALS: BMI 38.5
[2023-01-06 14:35] VITALS: BP 198/88; PULSE 90; RESP 16; TEMP 37.1; O2SAT 95; BMI 39.6
--- NOTE | 2023-01-06 14:46 | DI.RAD.S_ITS ---
PROCEDURE: XR CHEST 1V INDICATIONS: chest pain TECHNIQUE: One view of the chest was acquired. COMPARISON: [facility], CR, XR CHEST 1V, 06/21/2022, 22:36. FINDINGS: Surgical changes and devices: None. Lungs and pleura: Low lung volumes and bibasilar atelectasis.. No pleural effusions or pneumothorax. Mediastinum: Mediastinal contours appear normal. Heart size is normal. Bones and chest wall: No suspicious bony lesions. Overlying soft tissues appear unremarkable. IMPRESSION: Low lung volumes and bibasilar atelectasis. Dictated by: Sabine Washington M.D. on 01/06/2023 at 15:42 Approved by: Sabine Washington M.D. on 01/06/2023 at 15:43
[2023-01-06 14:59] VITALS: PULSE 77; RESP 20; O2SAT 98
[2023-01-06 15:00] VITALS: BP 170/83; PULSE 81; RESP 23; O2SAT 98
--- NOTE | 2023-01-06 15:08 | ED.CHESTPAIN ---
HPI - Chest Pain General Chief Complaint: Chest Pain Stated Complaint: chest pain Time Seen by Provider: 01/06/23 14:52 Source: patient Mode of arrival: Ambulatory Limitations: no limitations History of Present Illness HPI narrative: 72-year-old female with history GERD, hypertension presents by private vehicle from home for left-sided shoulder pain since 11. Patient states that she frequently will have left-sided pain due to her reflux as well as a hiatal hernia. Today the left-sided pain was slightly worse than usual and associated with tingling in her left fingers. Family states last night patient went to [employer] and lifted a lot of heavy objects. She called her manager risk management's office, who referred her to the emergency department for workup. She states that she last saw her manager risk management 1 year ago was given a clean bill of [employer]. Reports family history of heart disease, none in her or her siblings. Related Data Home Medications Medication Instructions Recorded Confirmed albuterol sulfate 90 mcg/actuation 1 puff inhalation PRN PRN Allergy 06/22/22 07/09/22 aerosol inhaler Symptoms azelastine 137 mcg (0.1 %) nasal 1 spray intranasal PRN PRN 06/22/22 07/09/22 spray aerosol Allergic Symptoms furosemide 20 mg tablet (Lasix) 20 mg PO DAILY 06/22/22 07/09/22 hydroxychloroquine 200 mg tablet 200 mg PO DAILY 06/22/22 07/09/22 omeprazole 40 mg capsule,delayed 40 mg PO BID 06/22/22 07/09/22 release valsartan 40 mg tablet 40 mg PO DAILY 06/22/22 07/09/22 Previous Rx's Medication Instructions Recorded acetaminophen 325 mg tablet 975 mg (3 x 325 mg) PO Q8H PRN 06/25/22 Pain, Mild (1-3) #90 tabs oxycodone 5 mg tablet 5 mg PO Q3HR PRN Pain, Moderate 06/25/22 (4-6) #10 tabs tramadol 50 mg tablet 50 mg PO QID PRN Pain, Moderate 06/25/22 (4-6) #20 tabs Allergies Allergy/AdvReac Type Severity Reaction Status Date / Time codeine Allergy Verified 07/09/22 12:52 tetracycline Allergy Verified 07/09/22 12:52 Review of Systems Review of Systems Narrative: CONSTITUTIONAL- Denies: fever, chills, fatigue HEENT- Denies: sore throat, nosebleed, vision changes RESPIRATORY- Denies: shortness of breath, cough, wheezing CARDIAC-reports: Chest pain Denies: edema, orthopnea GI- Denies: abdominal pain, nausea, vomiting, constipation, diarrhea - Denies: frequency, dysuria, hematuria, flank pain MSK- Denies: extremity pain, extremity swelling, joint pain, joint swelling SKIN- Denies: rash, itching, burn, swelling NEUROLOGICAL- Denies: headache, numbness, weakness, dizziness PSYCHIATRIC- Denies: anxiety, depression, suicidal ideation, homicidal ideation Patient History Medical History Abnormal colonoscopy Gallagher's esophagus determined by endoscopy Barretts esophagus Chronic kidney disease Colon polyps CREST syndrome Esophageal dysmotility GERD (gastroesophageal reflux disease) Hiatal hernia Hypertension Iron deficiency Pancreatitis Systolic murmur Social History household members: family Smoking Status: Never smoker alcohol intake: former Smoking Status: Never smoker Substance Use Type: does not use Exam Initial Vital Signs Initial Vital Signs: Vital Signs Temperature 98.7 F 01/06/23 14:35 Pulse Rate 90 01/06/23 14:35 Respiratory Rate 16 01/06/23 14:35 Blood Pressure 198/88 H 01/06/23 14:35 Pulse Oximetry 95 01/06/23 14:35 Oxygen Delivery Method Room Air 01/06/23 14:35 Const: Awake, alert, no acute distress, nontoxic appearing Eyes: PERRL, EOMI, conjunctiva normal ENT: Atraumatic, dentition normal, mucous membranes moist Cardiac: regular rate, regular rhythm RESP: unlabored, clear bilaterally, no wheezing GI: Atraumatic, soft, nontender, nondistended, no rebound, no guarding MSK: Atraumatic, full range of motion, pulses equal Skin: Warm, Dry, intact, no rashes Neuro: AO x3, CN II-XII grossly intact, moves all extremities Psych: affect normal, mood normal, not suicidal, not homicidal Scores HEART Score Heart Score history: Slightly Suspicious Heart Score EKG: Normal Heart Score Age: > or = 65 years old Heart Score risk factors: 1-2 risk factors Heart Score troponin: < or = to normal limit Heart Score Total: 3 Course Course Course Narrative: Well-appearing patient with left-sided chest pain. No chest pain last night on exertion, she noticed it today after waking up this morning. EKGs normal sinus rhythm without concerning findings. Given aspirin. Cardiac workup initiated. Orders Ordered: Discontinued Medications Aspirin (Aspirin 81 Mg Chew Tab) 324 mg PO NOW ONE Stop: 01/06/23 14:47 Last Admin: 01/06/23 15:17 Dose: 324 mg Documented By: PALAK Reevaluation(s) Reevaluation #1: Labs unremarkable, CXR normal. Patient resting comfortably in bed, no pain currently. Informed of lab and imaging results - patient will call her manager risk management office to schedule a follow up appointment. Patient was counseled if she has return of chest pain or change in her symptoms she should return for repeat evaluation. ED return precautions discussed at bedside. Patient expressed understanding of the plan and is in agreement at this time. All questions answered at the time of discharge. Vital Signs Vital signs: Vital Signs - 8 hr 01/06/23 14:35 01/06/23 14:59 01/06/23 15:00 Temperature 98.7 F Pulse Rate 90 77 Respiratory Rate 16 20 Blood Pressure 198/88 H 170/83 H Pulse Oximetry 95 98 Oxygen Delivery Method Room Air 01/06/23 15:00 01/06/23 15:30 01/06/23 15:30 Temperature Pulse Rate 81 74 Respiratory Rate 23 17 Blood Pressure 149/68 H Pulse Oximetry 98 97 Oxygen Delivery Method 01/06/23 16:00 01/06/23 16:00 01/06/23 16:30 Temperature Pulse Rate 79 Respiratory Rate 18 Blood Pressure 167/82 H 149/74 H Pulse Oximetry 97 Oxygen Delivery Method Room Air 01/06/23 16:30 Temperature Pulse Rate 71 Respiratory Rate 16 Blood Pressure Pulse Oximetry 97 Oxygen Delivery Method Room Air MDM - Chest Pain Lab Data 01/06/23 14:43 01/06/23 14:43 Labs: Lab Results 01/06/23 01/06/23 Range/Units 14:43 16:04 WBC 10.6 (4.5-11.0) X10^3/uL RBC 5.41 H (4.0-5.2) X10^6/uL Hgb 12.5 (12.0-16.0) g/dL Hct 39.3 (36-46) % MCV 72.5 L (80-100) fL MCH 23.1 L (26-34) PG MCHC 31.8 (30-36) % RDW 17.7 H (11.6-14.8) % Plt Count 325 (150-400) X10^3/uL Neut % (Auto) 59.0 (50-75) % Lymph % (Auto) 29.5 (25-40) % [place] % (Auto) 7.5 (3-14) % Eos % (Auto) 3.2 (2-4) % Baso % (Auto) 0.8 (0-2) % Neut # (Auto) 6200 (1027-4762) /uL Lymph # (Auto) 3100 (7336-9705) /uL [place] # (Auto) 800 (0-900) /uL Eos # (Auto) 300 (0-450) /uL Baso # (Auto) 100 (0-100) /uL PT 12.0 (10.1-12.7) SECONDS INR 1.0 (0.9-1.3) APTT 29 (26-36) SECONDS Sodium 137 (137-145) mmol/L Potassium 4.1 (3.4-5.1) mmol/L Chloride 101 (98-107) mmol/L Carbon Dioxide 26 (22-32) mmol/L BUN 32 H (7-17) mg/dL Creatinine 1.02 (0.52-1.04) mg/dL Estimated GFR 59 L (>60) mL/min BUN/Creatinine Ratio 31.4 H (6-22) Glucose 102 (80-110) mg/dL Calcium 9.7 (8.4-10.2) mg/dL Magnesium 2.1 (1.6-2.3) mg/dL Total Bilirubin 0.5 (0.2-1.3) mg/dL AST 29 (14-36) IU/L ALT 17 (<35) IU/L Alkaline Phosphatase 80 (38-126) U/L Total Creatine Kinase 65 (30-135) U/L Troponin I < 0.012 (0.01-0.034) ng/mL Total Protein 7.3 (6.3-8.2) g/dL Albumin 4.2 (3.5-5.0) g/dL Globulin 3.1 (1.7-4.1) g/dL Albumin/Globulin Ratio 1.4 (1.0-2.8) Lipase 52 (23-300) U/L Urine Color Yellow Urine Appearance Clear Urine pH 5.5 (4.5-8.0) Ur Specific [place] <=1.005 (1.000-1.035) Urine Protein Negative (Negative) Urine Glucose (UA) Negative (Negative) g/dL Urine Ketones Negative (NEGATIVE) Urine Occult Blood Negative (Negative) Urine Nitrate Negative (Negative) Urine Bilirubin Negative (NEGATIVE) Urine Urobilinogen 0.2 (0.2) E.U./dL Ur Leukocyte Esterase 1+ H (NEGATIVE) Urine RBC None seen (0-5/HPF) Urine WBC 1-5/hpf (0-5/HPF) Ur Squamous Epith Cells 0-1 /hpf (0-5/HPF) Urine Bacteria None seen (None) Ur Culture Indicated? Specimen cultured Urine Dip Bedside Urine Glucose Negative Bedside Urine Bilirubin - Negative Bedside Urine Ketone - Negative Urine Specific [place] 1.010 Bedside Urine Occult Blood - Negative Bedside Urine pH 6.0 Bedside Urine Protein - Negative Bedside Urine Urobilinogen - Negative Bedside Urine Nitrite - Negative Bedside Urine Leukocytes +/- 15 Esterase ECG Data Interpretation: Normal sinus rhythm, normal axis, normal HI intervals, no STT wave changes Discharge Plan Departure Patient Disposition: Home Clinical Impression: Chest pain Instructions: DI for Chest Pain Activity Restrictions/Additional Instructions: Call your primary care doctor for follow up. If your chest pain does not improve or gets worse please return for repeat evaluation. Prescriptions: No Action valsartan 40 mg tablet 40 mg PO DAILY omeprazole 40 mg capsule,delayed release(DR/EC) 40 mg PO BID Patient Comments: TAKE 1 CAPSULE BY MOUTH 2 TIMES DAILY 30 MINUTES PRIOR TO MEALS hydroxychloroquine 200 mg tablet 200 mg PO DAILY furosemide [Lasix] 20 mg Tablet 20 mg PO DAILY albuterol sulfate 90 mcg/actuation HFA aerosol inhaler 1 puff INHALATION PRN PRN (Reason: Allergy Symptoms) Patient Comments: INHALE 1-2 PUFFS BY MOUTH EVERY 4 - 6 HOURS NEEDED. WAIR FOR 1 MIN BETWEEN PUFFS. MAX 10 PUFF/DAY azelastine 137 mcg (0.1 %) aerosol,spray 1 spray INTRANASAL PRN PRN (Reason: Allergic Symptoms) Patient Comments: INHALE 2 SPRAYS NASALLY 2 TIMES DAILY NEEDED FOR OTHER (NASAL ALLERGIES). acetaminophen 325 mg Tablet 975 mg PO Q8H PRN (Reason: Pain, Mild (1-3)) Qty: 90 0RF tramadol 50 mg Tablet 50 mg PO QID PRN (Reason: Pain, Moderate (4-6)) Qty: 20 0RF oxycodone 5 mg Tablet 5 mg PO Q3HR PRN (Reason: Pain, Moderate (4-6)) Qty: 10 0RF Referrals: Maik Carrasco DO [Primary Care Provider] - Stand Alone Forms: Patient Portal/API
[2023-01-06] MEDS: ASPIRIN 81 MG CHEW TAB 324 MG PO (15:17)
[2023-01-06 15:30] VITALS: BP 149/68; PULSE 74; RESP 17; O2SAT 97
[2023-01-06 15:38] LABS: Add Manual Diff / Slide Review NO; Basophils Absolute Auto 100 /uL (0-100); Basophils Percent Auto 0.8 % (0-2); Eosinophils Absolute Auto 300 /uL (0-450); Eosinophils Percent Auto 3.2 % (2-4); Hematocrit 39.3 % (36-46); Hemoglobin 12.5 g/dL (12.0-16.0); Lymphocytes Absolute Auto 3100 /uL (1100-4500); Lymphocytes Percent Auto 29.5 % (25-40); Mean Corpuscular HGB Conc 31.8 % (30-36); Mean Corpuscular Hemoglobin 23.1 PG (26-34); Mean Corpuscular Volume 72.5 fL (80-100); Monocytes Absolute Auto 800 /uL (0-900); Monocytes Percent Auto 7.5 % (3-14); Neutrophils Absolute Auto 6200 /uL (1500-7000); Platelet Count 325 X10^3/uL (150-400); Red Blood Cell Count 5.41 X10^6/uL (4.0-5.2); Red Cell Distribution Width 17.7 % (11.6-14.8); White Blood Cell Count 10.6 X10^3/uL (4.5-11.0)
[2023-01-06 15:42] LABS: PTT Partial Thromboplastin Tim 29 SECONDS (26-36)
[2023-01-06 15:44] LABS: Alanine Aminotransferase 17 IU/L (<35); Albumin 4.2 g/dL (3.5-5.0); Albumin Globulin Ratio 1.4 (1.0-2.8); Alkaline Phosphatase 80 U/L (38-126); Aspartate Aminotransferase 29 IU/L (14-36); BUN Creatinine Ratio 31.4 (6-22); Bilirubin Total 0.5 mg/dL (0.2-1.3); Blood Urea Nitrogen 32 mg/dL (7-17); Calcium 9.7 mg/dL (8.4-10.2); Carbon Dioxide 26 mmol/L (22-32); Chloride 101 mmol/L (98-107); Creatine Kinase 65 U/L (30-135); Estimated Glomerular Filt Rate 59 mL/min (>60); Globulin 3.1 g/dL (1.7-4.1); Glucose 102 mg/dL (80-110); HEMOLYSIS < 15 (0-50); Lipase 52 U/L (23-300); Magnesium 2.1 mg/dL (1.6-2.3); Potassium 4.1 mmol/L (3.4-5.1); Sodium 137 mmol/L (137-145); Total Protein 7.3 g/dL (6.3-8.2)
[2023-01-06 15:55] LABS: Troponin I < 0.012 ng/mL (0.01-0.034)
[2023-01-06 16:00] VITALS: BP 167/82; PULSE 79; RESP 18; O2SAT 97
[2023-01-06 16:25] LABS: Appearance Urine UA CLEAR; Bilirubin Urine UA NEGATIVE (NEGATIVE); Color Urine UA YELLOW; Glucose Urine UA NEGATIVE (Negative); Ketones Urine UA NEGATIVE (NEGATIVE); Leukocyte Esterase Urine UA 1+ (NEGATIVE); Nitrite Urine UA NEGATIVE (Negative); Occult Blood Urine UA NEGATIVE (Negative); Protein Urine UA NEGATIVE (Negative); Specific Gravity Urine UA <=1.005 (1.000-1.035); Urobilinogen Urine UA 0.2 E.U./dL (0.2)
[2023-01-06 16:30] VITALS: BP 149/74; PULSE 71; RESP 16; O2SAT 97
[2023-01-06 16:31] LABS: pH Urine UA 5.5 (4.5-8.0)
[2023-01-06 16:45] LABS: RBC Urine None Seen (0-5/HPF); WBC Urine 1-5/HPF (0-5/HPF)
[2023-01-06 16:46] LABS: Bacteria Urine None Seen; Culture Indicated Urine Specimen Cultured; Squamous Epithelial Cell Urine 0-1 /HPF (0-5/HPF)
== END 2023-01-06 16:51 | disposition home or self-care (01) ==
PROVIDERS: Emergency Provider Emergency Medicine; PCP Family Medicine
DX: R07.9 Chest pain, unspecified (principal)
CPT/HCPCS: 36415; 71045; 80053; 81001; 81003; 82550; 83690; 83735; 84484; 85025; 85610; 85730; 87086; 93005; 99284